=== PATIENT | male | born 1965 | race Caucasian/White ===

== ENCOUNTER 2024-02-25 15:32 | Inpatient (IN) | payer OTHER, SELFPAY ==
[2024-02-25] VITALS (12 sets, daily range): BP systolic 163–201; BP diastolic 103–136; PULSE 80–103; RESP 12–20; TEMP 36.6–37.1; O2SAT 95–100; BMI 36.3
--- NOTE | 2024-02-25 15:38 | HMH.EDGENADL ---
Discharge Plan Disposition Patient Disposition: Admitted Clinical Impressions Clinical Impression: Localized swelling of both lower extremities CHF (congestive heart failure) Qualifiers: Heart failure type: systolic Heart failure chronicity: unspecified Qualified Code(s): I50.20 - Unspecified systolic (congestive) heart failure Discharge ED Provider: Andres Andrade General Adult HPI General Chief complaint: Abdominal Pain Stated complaint: swollen feet and legs with runny nose Time Seen by Provider: 02/25/24 15:36 Mode of Arrival: Ambulatory Source of Information: Patient Limitations: No Limitations History of Present Illness HPI narrative: This is a 59-year-old male with no diagnosed past medical history who presents with concern for swelling in his lower extremities that has progressed to his abdomen over the last several months. States that he was talking to his friend who is a nurse who told him to come into the emergency department today due to concern about his health. States that the swelling started in his legs back in October and is now progressed to his abdomen. Denies any abdominal pain. Reports intermittent chills. States that he used to have moderate alcohol use drinking hard liquor and beers about 3 times weekly however he quit all hard liquors in June. Still drinks beer occasionally. Denies any drug use. Denies any other symptoms. Related Data Allergies Allergy/AdvReac Type Severity Reaction Status Date / Time No Known Allergies Allergy Verified 02/25/24 15:54 [facility] Disclaimer: The information contained in this section may have been updated after the patient was seen, as this information can be updated by other users. Social History Smoking Status: Current every day smoker alcohol intake: current current occupational status: employed Travel in the last 8 weeks: None ROS Obtained: Yes All systems reviewed & no additional complaints except as documented Physical Exam General General appearance: alert and in no apparent distress Eye Eye exam: Present normal appearance, PERRL, EOMI and scleral icterus Respiratory Respiratory exam: Present normal lung sounds bilaterally; Absent respiratory distress Cardiovascular Cardiovascular exam: Present regular rate and normal rhythm Abdominal Exam Abdominal exam: Present soft and distention (protuberant); Absent tenderness, guarding or rebound Extremities Exam Extremities exam: Present other (3+ pitting bilateral lower extremity edema) Neurological Exam Neurological exam: Present alert and oriented X3 Skin Skin exam: Present warm and dry Medical Decision Making Medical Records Medical records reviewed: Yes I reviewed the patient's medical records. Screening: Per USPSTF and CDC recommendations, given the prevalence of disease in our region, it is our hospital?s policy to screen for HIV and viral Hepatitis for all patients aged 18 and over and those with ongoing risk factors. Ian Inquiry Pt receiving controlled substance: No Vital Signs: 02/25/24 15:34 02/25/24 16:07 02/25/24 16:13 Temperature 98.5 F Temperature Source Oral Pulse Rate 103 H Pulse Rate [Right Radial] 101 H Respiratory Rate 20 19 Blood Pressure 179/118 H 201/119 H Blood Pressure [Right Arm] 201/136 H Blood Pressure Mean [Right Arm] 157 02 Sat by Pulse Oximetry 100 98 95 Oxygen Delivery Method Room Air Room Air Room Air 02/25/24 16:30 02/25/24 16:50 02/25/24 17:15 Temperature Temperature Source Pulse Rate 96 H 102 H 95 H Pulse Rate [Right Radial] Respiratory Rate 16 12 18 Blood Pressure 191/121 H 177/109 H 195/122 H Blood Pressure [Right Arm] Blood Pressure Mean [Right Arm] 02 Sat by Pulse Oximetry 99 97 97 Oxygen Delivery Method Room Air Room Air 02/25/24 17:30 Temperature Temperature Source Pulse Rate 95 H Pulse Rate [Right Radial] Respiratory Rate 15 Blood Pressure 189/118 H Blood Pressure [Right Arm] Blood Pressure Mean [Right Arm] 02 Sat by Pulse Oximetry 97 Oxygen Delivery Method Room Air Lab Data Lab Results 02/25/24 16:00: WBC 6.1, RBC 4.56 L, Hgb 12.9 L, Hct 40.4 L, MCV 88.6, MCH 28.3, MCHC 31.9, RDW 13.3, Plt Count 166, MPV 10.8 H, Neut % (Auto) 65.5, Lymph % (Auto) 22.9, [place] % (Auto) 9.2, Eos % (Auto) 1.5, Baso % (Auto) 0.7, Neut # (Auto) 4.0, Lymph # (Auto) 1.4, [place] # (Auto) 0.6, Eos # (Auto) 0.1, Baso # (Auto) 0.0, PT 12.0, INR 1.08, Sodium 138, Potassium 3.8, Chloride 102, Carbon Dioxide 32 H, Anion Gap 7.8, BUN 16, Creatinine 0.90, Estimated Creat Clear 160, Estimated GFR 87, Est GFR ( Amer) 105, Glucose 156 H, Calcium 8.5, Total Bilirubin 1.2, AST 44, ALT 17, Alkaline Phosphatase 68, NT-Pro-B Natriuret Pep 7520 H, Total Protein 6.8, Albumin 3.6, Globulin 3.2, Albumin/Globulin Ratio 1.1, Lipase 64, Plasma/Serum Alcohol < 10 02/25/24 16:00 02/25/24 16:00 Orders (Tests/Meds): ED MEDICATIONS Generic Name Dose Route Start Last Admin Trade Name Freq PRN Reason Stop Dose Admin Enoxaparin Sodium 40 mg 02/25/24 17:45 Enoxaparin 40mg/0.4ml Syringe SUBCUT 03/26/24 17:44 DAILY MIRIAM Furosemide 80 mg 02/26/24 09:00 Furosemide 40mg/4ml Vial IV 03/27/24 08:59 BIDL MIRIAM Insulin Human Lispro 0 unit 02/25/24 21:00 Humalog 100 Units/Ml 10ml Vial (Ssi) SUBCUT 03/26/24 20:59 ACHS MIRIAM Protocol Sacubitril/Valsartan 1 each 02/25/24 21:00 Sacubitril/Valsartan 24-26mg Tablet PO 03/26/24 20:59 BID MIRIAM Discontinued Medications Generic Name Dose Route Start Last Admin Trade Name Freq PRN Reason Stop Dose Admin Furosemide 40 mg 02/25/24 16:56 02/25/24 18:06 Furosemide 40mg/4ml Vial IV 02/25/24 16:57 40 mg ONCE ONE Administration Furosemide 80 mg 02/25/24 17:30 Furosemide 40mg/4ml Vial IV 02/25/24 17:31 ONCE ONE Iopamidol 75 ml 02/25/24 16:51 02/25/24 16:52 Iopamidol-370 (76%);100ml Bottle IV 02/25/24 16:52 75 ml ONCE ONE Administration Sodium Chloride 10 ml 02/25/24 16:51 02/25/24 16:52 Sodium Chloride 0.9% 10ml Syr (Rad Only) IV 02/25/24 16:52 10 ml ONCE ONE Administration ORDERS Category Date Time Status CT abdomen pelvis w con Stat Cat Scan 02/25/24 15:55 Completed Cardiology Consult [Consult to Cardiology] [CONS] Cons 02/25/24 17:29 Active Routine Chest XR 2 view (NOT portable) [XR chest 2V] Stat Exams 02/25/24 15:55 Completed POCUS Point of Care (ER Only) Stat Exams 02/25/24 17:09 Ordered BNP [NT Pro Brain Natriuretic Pep.] Stat Lab 02/25/24 16:00 Completed Blood alcohol [Ethyl Alcohol] Stat Lab 02/25/24 16:00 Completed CBC w/Auto Diff [Complete Blood Count Auto Diff] Stat Lab 02/25/24 16:00 Completed CMP [Comprehensive Metabolic Panel] Stat Lab 02/25/24 16:00 Completed Complete Blood Count Auto Diff AMLAB Lab 02/26/24 06:00 Ordered Comprehensive Metabolic Panel AMLAB Lab 02/26/24 06:00 Ordered Direct LDL Cholesterol DAILY Lab 02/26/24 06:00 Ordered Hemoglobin A1C Stat Lab 02/25/24 16:00 Received Hepatitis Panel Stat Lab 02/25/24 16:00 Received Lipase Stat Lab 02/25/24 16:00 Completed Magnesium AMLAB Lab 02/26/24 06:00 Ordered PT/INR [Prothrombin Time INR] Stat Lab 02/25/24 16:00 Completed TSH [Thyroid Stimulating Hormone] Stat Lab 02/25/24 16:00 Received Troponin I Q3H Lab 02/25/24 20:30 Ordered Troponin I Q3H Lab 02/25/24 23:30 Ordered Troponin I Stat Lab 02/25/24 16:00 Received CA echo doppler complete Routine Y 02/25/24 17:30 Ordered ECG Data Tracing #1: I reviewed this ECG and interpreted as documented below: Sinus tachycardia at a rate of 101, occasional PVC, QTc 407, normal axis, no STEMI Medical Decision Narrative: In summary, this 59-year-old male with no diagnosed past medical history presents to the emergency department today with concern for lower extremity swelling that has progressed to his abdomen over the last several months. On initial evaluation patient is in no acute distress, afebrile, hemodynamically stable. Had pitting bilateral lower extremity edema and protuberant abdomen with possible sclarea icterus on exam. Differential diagnosis includes but is not limited to cirrhosis, hepatitis, CHF, acute renal failure. Based on these concerns, I ordered CBC, CMP, lipase, PT/INR, chest x-ray, BNP, CT abdomen pelvis with IV contrast, hepatitis panel. ECG personally interpreted as noted above. Labs personally reviewed demonstrate normal white blood cell count, mild anemia at Hb 12.9, normal total bilirubin and LFTs, BNP 7520. XR personally interpreted demonstrates right lower lobe opacity which could represent pneumonia. CT imaging personally interpreted demonstrates mild ascites and associated right sided pleural effusion. [id number] ultrasound revealed moderately diminished LVEF. EPSS 16 mm. Administered 40 mg Lasix IV for volume overload. Had an interactive discussion with hospitalist on-call who agreed with admission. Recommended giving an increased dose of Lasix for a total of 120 mg IV. This order was placed by me. Patient ultimately admitted. Procedures Miscellaneous Procedure Procedure Performed: Cardiac US Limited Cardiac Ultrasound Indication: Swelling Identified cardiac views: Parasternal long axis Parasternal short axis Apical four-chamber Subxiphoid Findings: Moderately diminished LVEF Impression: -Moderately diminished LVEF Images were saved to permanent archive The study was technically adequate CPT: 28910 This study was performed by me, and I personally interpreted all images/videos. Based on my clinical judgement, these images were [adequate/inadequate] and [did/did not] necessitate further imaging. Critical Care Critical Care Time Critical Care Time: No
--- NOTE | 2024-02-25 15:51 | ECG_ITS ---
APPROVED REPORT Exam: Resting ECG HR:101 bpm ECG Measurements Heart Rate 101 AXES MD 173 P 66 QRSd 109 QRS 94 QT 349 T -13 QTc 407 Conclusion SINUS TACHYCARDIA WITH OCCASIONAL VENTRICULAR PREMATURE COMPLEXES BORDERLINE RIGHT AXIS DEVIATION [QRS AXIS > 90] ABNORMAL ECG UNCONFIRMED REPORT Electronically signed by : Andres Andrade, 02/25/2024 21:28:44
--- NOTE | 2024-02-25 15:55 | CT_ITS ---
PROCEDURE INFORMATION: Exam: CT Abdomen And Pelvis With Contrast Exam date and time: 02/25/2024 4:45 PM Age: 59 years old Clinical indication: Mass, lump, or swelling; Generalized; Additional info: Abd swelling TECHNIQUE: Imaging protocol: Computed tomography of the abdomen and pelvis with contrast. Radiation optimization: All CT scans at this facility use at least one of these dose optimization techniques: automated exposure control; mA and/or kV adjustment per patient size (includes targeted exams where dose is matched to clinical indication); or iterative reconstruction. Contrast material: ISOVUE; Contrast volume: 75 ml; Contrast route: IV; COMPARISON: CR XR CHEST 2V 02/25/2024 3:59 PM FINDINGS: Pleural spaces: Right pleural effusion partially visualized in the lower thorax. Subsegmental atelectasis/scarring also noted in the right lung base. Liver: Fatty liver. No focal liver lesions. Gallbladder and biliary ducts: Unremarkable. Pancreas: Unremarkable. Spleen: Unremarkable. Adrenal glands: Unremarkable. Kidneys and ureters: No renal or ureteral stones. No hydronephrosis. Stomach and bowel: No evidence of small bowel obstruction. Few scattered colonic diverticula without evidence of diverticulitis. Appendix: No evidence of appendicitis. Intraperitoneal space: Moderate amount of intraperitoneal fat with small volume scattered ascites. No pneumoperitoneum. Vasculature: No abdominal aortic aneurysm. Lymph nodes: Unremarkable. Urinary bladder: Unremarkable. Reproductive: Unremarkable. Bones/joints: Variant transitional lumbosacral anatomy. No evidence of acute osseous abnormality. Soft tissues: Anasarca. IMPRESSION: 1. No evidence of acute intra-abdominal pathology. 2. Moderate amount of intraperitoneal fat with small volume scattered ascites. 3. Anasarca. 4. Right pleural effusion partially visualized in the lower thorax. 5. Fatty liver. 6. Variant transitional lumbosacral anatomy. 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
--- NOTE | 2024-02-25 15:55 | XR_ITS ---
FINAL REPORT CLINICAL HISTORY: eval volume status FINDINGS: There is right basilar airspace disease compatible with pneumonia. The left lung is clear. There is no evidence of effusion or other pleural disease. The mediastinum has a normal appearance. There is moderate cardiomegaly. IMPRESSION: Right basilar pneumonia. Reviewed, Interpreted and Dictated by Bette Croft MD Transcribed by Edie Liu Authenticated and [facility]
[2024-02-25 16:28] LABS: Alanine Aminotransferase 17 U/L (12-78); Albumin Level 3.6 g/dl (3.5-5.0); Albumin/Globulin Ratio 1.1 (1.1-1.8); Alkaline Phosphatase 68 U/L (38-126); Anion Gap 7.8 mEq/L (5-15); Aspartate Amino Transferase 44 U/L (17-59); Bilirubin,Total 1.2 mg/dl (0.2-1.3); Blood Urea Nitrogen 16 mg/dl (9-20); Calcium 8.5 mg/dl (8.4-10.2); Carbon Dioxide 32 mmol/L (22.0-30.0); Chloride 102 mmol/L (98-107); Creatinine Clearance Estimated 160 mL/min (50-200); Estimated Glomerular Filt Rate 87 ml/min (>60); GFR (African American) 105 ML/MIN (>60); Globulin 3.2 g/dL (1.3-3.2); Glucose 156 mg/dl (74-100); INR 1.08 (0.9-1.1); Lipase 64 U/L (23-300); Potassium 3.8 mmoL/L (3.5-5.1); Sodium 138 mmol/L (136-145); Total Protein,Serum 6.8 g/dl (6.3-8.2)
[2024-02-25 16:36] LABS: NT Pro Brain Natriuretic Pep. 7520 pg/mL (0-125)
--- NOTE | 2024-02-25 16:42 | PC.NURSE ---
PT TO CT
[2024-02-25 16:48] LABS: Ethyl Alcohol < 10 mg/dl (0-10)
[2024-02-25 16:51] LABS: Hematocrit 40.4 % (42.0-52.0); Hemoglobin 12.9 g/dL (14.1-18.0); Lymphocytes % 22.9 % (10-50); Mean Corpuscular HGB Conc 31.9 g/dL (31.8-35.4); Mean Corpuscular Hemoglobin 28.3 pg (27.0-31.2); Mean Corpuscular Volume 88.6 fl (80-94); Mean Platelet Volume 10.8 fl (7.4-10.4); Monocytes % 9.2 % (1.7-9.3); Neutrophils % 65.5 % (37.0-80.0); Platelet Count 166 K/mm3 (142-424); Red Blood Count 4.56 M/mm3 (4.60-6.20); Red Cell Distribution Width 13.3 % (11.5-17.5); White Blood Count 6.1 K/mm3 (4.8-10.8)
[2024-02-25 16:52] LABS: Basophils % 0.7 % (0.1-2.0); Eosinophils # 0.1 K/mm3 (0.0-0.4); Eosinophils % 1.5 % (0.1-12.0); Lymphocytes # 1.4 K/mm3 (0.7-4.5); Monocytes # 0.6 K/mm3 (0.1-1.0)
[2024-02-25] MEDS: IOPAMIDOL-370 (76%);100ML BOTTLE 75 ML IV (16:52)
[2024-02-25] MEDS: SODIUM CHLORIDE 0.9% 10ML SYR (RAD ONLY) 10 ML IV (16:52)
--- NOTE | 2024-02-25 17:31 | P.HP_ITS ---
History of Present Illness *Admission Date: 02/25/24 *Reason for visit:: Dyspnea with exertion, swelling *History of present illness: Mr. Garibay is a 59-year-old male who has not been to the doctor almost 20 years. Presented to the ER at the recommendation of his friend who is a nurse due to increased swelling that is progressed over the past year from his ankles up to his abdomen. Has gained significant weight with fluid. Pants fitting tight. Distention of abdomen. Shortness of breath with exertion. States a pressure sensation in his abdomen and chest as his abdomen is gotten bigger. Started in his ankles and legs earlier this year. Progressed over the summer up to his thighs and since October his abdomen has become more distended and edematous. States that when he is seated and rests his arms on his legs, he has impressions in his thighs from his arms. Initial workup in the ER including bedside ultrasound to evaluate heart, CT abdomen, and labs. Patient found to have anasarca, ascites, right sided effusion on CT. BNP elevated at 7500. Kidney function and electrolytes remarkably normal. Patient stable on room air. Findings consistent with acute heart failure and volume overload. Administered 40 mg Lasix in the ER. Medicine consulted for admission. Patient given additional 80 mg Lasix on arrival to the floor. Stable on room air. Alert and oriented x 4. Denies linnea chest pain, does complain of discomfort that has been present for about a month that he correlated to his abdomen being more distended. No nausea, vomiting, diarrhea. Has been trying an [id number] diuretic that he got from [employer] that has given him no benefit. He had to lay flat to sleep but does have dyspnea with exertion and unable to bend over and tie his shoes. Reports that he had an episode over 20 years ago where his heart was abnormal and rhythm, he went through cardioversion and was on a blood thinner along with metoprolol. Does not know if he frankly had A-fib. States he has not had any issues since that he is aware of. Has had high blood pressure for a long time. Former drinker who quit hard liquor earlier this year. Former smoker who smoked a pack a day for approximately 40 years but is down to 1 cigarette a few times a week. [facility] Disclaimer: The information contained in this section may have been updated after the patient was seen, as this information can be updated by other users. Social History Smoking Status: Current every day smoker alcohol intake: current current occupational status: employed Travel in the last 8 weeks: None Have you lived/traveled outside [place] in past 30 days?: No Contact w/someone who lives/traveled outside US past 30 days?: No Exposure to someone with infectious disease in past 14 days?: No Do you have a fever (greater than 100.4 F or 38 C)?: No Have you tested positive for COVID-19: No Exposed to someone with COVID-19 in past 14 days?: No Do you have a sore throat?: No Do you have a cough?: No Do you have any weakness?: No Do you have any diarrhea?: No Are you experiencing any unusual bleeding?: No Do you have any muscle aches/pain?: No Do you have any abdominal pain?: No Are you experiencing loss of taste or smell?: No Review of Systems Review of Systems Review of systems (narrative): 14 point review of systems performed, pertinent positives and negatives as per HPI Meds Home Medications and Allergies Home Medications ?Medication ?Instructions ?Recorded ?Confirmed ?Type No Known Home Medications 02/25/24 02/25/24 History New Prescriptions to Start Prescriptions: Allergies Allergy/AdvReac Type Severity Reaction Status Date / Time No Known Allergies Allergy Verified 02/25/24 15:54 Exam Data for Last 24 hours Vital signs and Labs for Last 24 Hours: Temp Pulse Resp BP Pulse Ox O2 Del Method 98.5 F 102 H 12 177/109 H 97 Room Air 02/25/24 15:34 02/25/24 16:50 02/25/24 16:50 02/25/24 16:50 02/25/24 16:50 02/25/24 16:30 Laboratory Results - last 24 hr 02/25/24 16:00: WBC 6.1, RBC 4.56 L, Hgb 12.9 L, Hct 40.4 L, MCV 88.6, MCH 28.3, MCHC 31.9, RDW 13.3, Plt Count 166, MPV 10.8 H, Neut % (Auto) 65.5, Lymph % (Auto) 22.9, [place] % (Auto) 9.2, Eos % (Auto) 1.5, Baso % (Auto) 0.7, Neut # (Auto) 4.0, Lymph # (Auto) 1.4, [place] # (Auto) 0.6, Eos # (Auto) 0.1, Baso # (Auto) 0.0, PT 12.0, INR 1.08, Sodium 138, Potassium 3.8, Chloride 102, Carbon Dioxide 32 H, Anion Gap 7.8, BUN 16, Creatinine 0.90, Estimated Creat Clear 160, Estimated GFR 87, Est GFR ( Amer) 105, Glucose 156 H, Calcium 8.5, Total Bilirubin 1.2, AST 44, ALT 17, Alkaline Phosphatase 68, NT-Pro-B Natriuret Pep 7520 H, Total Protein 6.8, Albumin 3.6, Globulin 3.2, Albumin/Globulin Ratio 1.1 , Lipase 64, Plasma/Serum Alcohol < 10 I & O for Last 24 hours: Intake & Output 02/22/24 02/23/24 02/24/24 02/25/24 23:59 23:59 23:59 23:59 Weight 124.738 kg Constitutional Constitutional: no acute distress, obese and cooperative *Routine HEENT Exam Head: Present normocephalic Eye: Present EOMI and PERRL ENT: Present mucous membranes moist *Routine Neck Exam Neck: Present supple; Absent lymphadenopathy *Routine Respiratory Exam Respiratory: Present crackles and diminished air movement; Absent rhonchi or wheezes *Routine Cardiovascular Exam Cardiovascular: Present tachycardia Comments: Regular rhythm *Routine Abdominal Exam Abdominal: Present soft, normoactive bowel sounds and distended; Absent tenderness Comments: Edema of abdominal wall *Routine Rectal Exam Rectal:: deferred *Routine Genitalia Exam Genitalia:: deferred *Routine Extremities Exam Extremities: Present edema (3+ to thighs); Absent cyanosis or clubbing Comments: Anasarca *Routine Skin Exam Skin: Present warm; Absent rash *Routine Neurological Exam Neurological: Present alert, oriented X3 and moving all extremities; Absent altered mental status Routine Psychiatric Exam Psychiatric: Present normal affect Assessment and Plan *Assessment and plan (1) Acute CHF (congestive heart failure): Status: Acute Category: Medical Code(s): I50.9 - Heart failure, unspecified (2) NSTEMI (non-ST elevated myocardial infarction): Status: Acute Category: Medical Code(s): I21.4 - Non-ST elevation (NSTEMI) myocardial infarction (3) Hyperglycemia: Status: Acute Category: Medical Code(s): R73.9 - Hyperglycemia, unspecified (4) Pleural effusion: Status: Acute Category: Medical Code(s): J90 - Pleural effusion, not elsewhere classified (5) Hypertension: Status: Acute Category: Medical Code(s): I10 - Essential (primary) hypertension (6) Obesity (BMI 30-39.9): Status: Chronic Category: Medical Code(s): E66.9 - Obesity, unspecified Plan 59-year-old male who presents with progressive edema and swelling. Workup in the ER concerning for acute CHF. Found to have elevated troponin consistent with NSTEMI. Discussed case with ER, request admission for further management and aggressive diuresis. I agreed to admit for further treatment. Cardiology consulted to see patient in the morning. Will initiate Bumex drip. Stable on room air. Problems addressed as follows: Acute CHF NSTEMI Hypertension -BNP elevated at 7500, per my review of CT of abdomen patient has ascites, anasarca/body wall edema, and right-sided effusion. -Initial troponin 0.59, patient denies chest pain and EKG personally reviewed showing no ST elevations or ischemic changes. Noted to have sinus tachycardia. -Received 120 mg Lasix total around admission. Will initiate 0.5 mg/h Bumex drip. Plan for aggressive diuresis. -Formal echo ordered for the morning, POCUS obtained in the ER with LV dysfunction. -Blood pressure significantly elevated. Will initiate Entresto 24/26 mg twice daily. Initiate isosorbide dinitrate 10 mg 3 times a day. Will hold on beta- staci pending formal echo -Cardiology consulted to evaluate patient in the morning. -Kidney function electrolytes normal with BUN 16, creatinine 0.9. Potassium 3.8. Repeat CBC, CMP, magnesium ordered for the morning. -TSH normal at 4. Hyperglycemia: Initial glucose 156. A1c pending. Will initiate fingersticks ACHS and sliding scale insulin. Concern patient may have diabetes as well. Tobacco use disorder, smokes very little now. Will hold on nicotine patches Obesity complicates all aspects of his care Full code Lovenox 40 mg subcu daily Cardiac diet, n.p.o. at midnight
--- NOTE | 2024-02-25 17:47 | PC.NURSE ---
RESIDENTIAL [employer]STRUCTION INSTRUCTOR NOTIFIED OF ADMISSION
[2024-02-25] MEDS: FUROSEMIDE 40MG/4ML VIAL 40 MG IV (18:06)
[2024-02-25 18:10] LABS: Troponin I 0.59 ng/ml (0.00-0.034)
--- NOTE | 2024-02-25 18:11 | PC.NURSE ---
TROP 0.59, PT NAME AND R/V. DR VASQUEZ NOTIFIED
[2024-02-25 18:18] LABS: Thyroid Stimulating Hormone 4.17 uIU/mL (0.465-4.68)
--- NOTE | 2024-02-25 18:18 | PC.NURSE ---
arrived to floor by w/c at 18:14
[2024-02-25] MEDS: FUROSEMIDE 40MG/4ML VIAL 80 MG IV (18:31)
[2024-02-25] MEDS: ENOXAPARIN 40MG/0.4ML SYRINGE 40 MG SUBCUT (18:32)
--- NOTE | 2024-02-25 19:08 | PC.NURSE ---
Patient's BP 199/113, MD aware, new medications ordered.
[2024-02-25] MEDS: ASPIRIN 325MG TABLET 325 MG PO (20:06)
[2024-02-25] MEDS: BUMETANIDE 10 MG in 0.9 % SODIUM CHLORIDE 60 ML 5 MG IV (20:06)
[2024-02-25] MEDS: ENOXAPARIN 80MG/0.8ML SYRINGE 80 MG SUBCUT (20:07)
[2024-02-25 20:51] LABS: POC Glucose,Bedside 140 (70-110)
[2024-02-25] MEDS: guaiFENesin 200MG/10ML SYRUP UDC 200 MG PO (20:58)
[2024-02-25] MEDS: ISOSORBIDE DINITRATE 10 MG TABLET PO (20:58)
[2024-02-25] MEDS: SACUBITRIL/VALSARTAN 24-26MG TABLET 1 EACH PO (20:58)
[2024-02-25 21:03] LABS: Troponin I 0.49 ng/ml (0.00-0.034)
[2024-02-25 23:05] LABS: Hemoglobin A1C 6.5 % (4.0-6.0)
--- NOTE | 2024-02-25 23:58 | PC.NURSE ---
Contacted Dr. Phelps with concerns of pt elevated BP continuing, new PRN orders given at this time
[2024-02-26] VITALS (11 sets, daily range): BP systolic 121–156; BP diastolic 63–92; PULSE 80–100; RESP 17–19; TEMP 36.7–37.1; O2SAT 95–97; BMI 39.6
[2024-02-26] MEDS: HYDRALAZINE 20MG/ML VIAL 10 MG IV (00:04)
[2024-02-26 00:09] LABS: Troponin I 0.56 ng/ml (0.00-0.034)
--- NOTE | 2024-02-26 00:11 | P.EN_ITS ---
Patient currently being treated for CHF exacerbation and also appears to have non-STEMI with hypertensive urgency. Patient's troponin trend overnight 0.59-> 0.49-> 0.56. Patient already received Lovenox 120 mg x 1 this evening for non- STEMI coverage. Patient also received aspirin 324 mg x 1 this evening. Patient currently chest pain-free. Patient has suffered from some hypertension's overnight BP 173/101. I wrote for 10 mg IV hydralazine every 4 hours as needed. Suspect patient may receive cardiac catheterization in AM. Cardiology consultation already in progress. Will continue to monitor patient's troponin trends and blood pressure closely overnight.
[2024-02-26] MEDS: NIFEdipine XL 30MG TABLET 30 MG PO ×2 (00:24→08:27)
[2024-02-26] MEDS: guaiFENesin 200MG/10ML SYRUP UDC 200 MG PO (05:46)
[2024-02-26 06:23] LABS: HBsAg Screen Negative (Negative); HCV Ab Non Reactive (Non Reactive); Hep A Ab, IGM Negative (Negative); Hep B Core Ab, IgM Negative (Negative)
[2024-02-26 06:24] LABS: POC Glucose,Bedside 111 (70-110)
[2024-02-26 06:56] LABS: Albumin Level 3.4 g/dl (3.5-5.0); Chloride 104 mmol/L (98-107); Potassium 3.3 mmoL/L (3.5-5.1); Sodium 135 mmol/L (136-145)
[2024-02-26 06:59] LABS: Alanine Aminotransferase 15 U/L (12-78); Albumin/Globulin Ratio 1.1 (1.1-1.8); Alkaline Phosphatase 64 U/L (38-126); Anion Gap 5.3 mEq/L (5-15); Aspartate Amino Transferase 36 U/L (17-59); Bilirubin,Total 1.4 mg/dl (0.2-1.3); Blood Urea Nitrogen 14 mg/dl (9-20); Carbon Dioxide 29 mmol/L (22.0-30.0); Creatinine Clearance Estimated 202 mL/min (50-200); Estimated Glomerular Filt Rate 100 ml/min (>60); GFR (African American) 121 ML/MIN (>60); Globulin 3.2 g/dL (1.3-3.2); Total Protein,Serum 6.6 g/dl (6.3-8.2)
[2024-02-26 07:00] LABS: Calcium 8.6 mg/dl (8.4-10.2); Glucose 110 mg/dl (74-100); Hematocrit 38.3 % (42.0-52.0); Hemoglobin 12.3 g/dL (14.1-18.0); Magnesium 1.6 mg/dl (1.6-2.3); Red Blood Count 4.42 M/mm3 (4.60-6.20); White Blood Count 6.6 K/mm3 (4.8-10.8)
[2024-02-26 07:01] LABS: Basophils % 0.8 % (0.1-2.0); Eosinophils # 0.1 K/mm3 (0.0-0.4); Eosinophils % 2.1 % (0.1-12.0); Lymphocytes # 1.2 K/mm3 (0.7-4.5); Lymphocytes % 18.3 % (10-50); Mean Corpuscular HGB Conc 32.1 g/dL (31.8-35.4); Mean Corpuscular Hemoglobin 27.8 pg (27.0-31.2); Mean Corpuscular Volume 86.7 fl (80-94); Mean Platelet Volume 10.4 fl (7.4-10.4); Monocytes # 0.7 K/mm3 (0.1-1.0); Monocytes % 11.2 % (1.7-9.3); Neutrophils # 4.5 K/mm3 (1.8-7.8); Neutrophils % 67.4 % (37.0-80.0); Platelet Count 171 K/mm3 (142-424); Red Cell Distribution Width 13.2 % (11.5-17.5)
[2024-02-26 07:02] LABS: Basophils # 0.1 K/mm3 (0-0.2)
[2024-02-26 08:04] LABS: Direct LDL Cholesterol 100.18 mg/dL (100-129)
[2024-02-26] MEDS: SACUBITRIL/VALSARTAN 24-26MG TABLET 1 EACH PO ×2 (08:27→20:04)
[2024-02-26] MEDS: CLOPIDOGREL 75MG TAB 75 MG PO (08:27)
[2024-02-26] MEDS: ISOSORBIDE DINITRATE 10 MG TABLET PO ×3 (08:27→20:05)
[2024-02-26] MEDS: MAGNESIUM SULFATE IN WATER 2 GM/50 ML PIGGYBACK IV ×2 (08:34→09:39)
[2024-02-26] MEDS: POTASSIUM CHLORIDE 20MEQ TAB 40 MEQ PO ×2 (08:34→10:46)
[2024-02-26] MEDS: AZITHROMYCIN 250MG TABLET 500 MG PO (10:46)
[2024-02-26] MEDS: BUMETANIDE 10 MG in 0.9 % SODIUM CHLORIDE 60 ML 5 MG IV (10:48)
[2024-02-26] MEDS: SODIUM CHLORIDE 3% 15ML NEB 3 ML IH (11:00)
--- NOTE | 2024-02-26 11:35 | P.CONCA_ITS ---
History of Present Illness History of Present Illness Consult date: 02/26/24 Requesting physician: Kartik Shields Consult reason: congestive heart failure Chief complaint: LE Edema and SOA History of present illness: 59-year-old white male with history of arrhythmia and heart valve issue unspecified and severe Htn (200s+) all evaluated over 20 years ago and untreated since that time. Patient presented to the emergency room with 6 months of worsening lower extremity edema and abdominal swelling. On arrival he was found to have anasarca, proBNP 7500, right pleural effusion. Trop flat at 0.59 and 0.56. EKG is [address] 101 with occasional PVCs. Admitted, started on diuretics and has already diursed 7L overnight. Patient is a former smoker, 40 years. States he is to drink alcohol but not heavily. His mother had heart valve replacement, details unknown. [facility] Disclaimer: The information contained in this section may have been updated after the patient was seen, as this information can be updated by other users. Social History Smoking Status: Current every day smoker alcohol intake: current current occupational status: employed Travel in the last 8 weeks: None Have you lived/traveled outside [place] in past 30 days?: No Contact w/someone who lives/traveled outside US past 30 days?: No Exposure to someone with infectious disease in past 14 days?: No Do you have a fever (greater than 100.4 F or 38 C)?: No Have you tested positive for COVID-19: No Exposed to someone with COVID-19 in past 14 days?: No Do you have a sore throat?: No Do you have a cough?: No Do you have any weakness?: No Do you have any diarrhea?: No Are you experiencing any unusual bleeding?: No Do you have any muscle aches/pain?: No Do you have any abdominal pain?: No Are you experiencing loss of taste or smell?: No Review of Systems Constitutional Constitutional: Denies fatigue and Denies weakness Eyes Eyes: Denies loss of vision ENT Ears, Nose, Mouth, and Throat: Denies hearing loss and Denies vertigo *Cardiovascular Cardiovascular: Denies chest pain, Reports dyspnea, Reports leg edema and Denies syncope *Respiratory Respiratory: Denies cough and Reports dyspnea *Gastrointestinal Gastrointestinal: Denies change in stool character, Denies nausea and Denies vomiting Comments: abdominal swelling/distension *Genitourinary Genitourinary: Denies difficulty urinating *Musculoskeletal Musculoskeletal: Denies muscle weakness Integumentary/Breasts Skin/Breast: Denies changing lesions *Neurologic Neurologic: Denies loss of vision, Denies syncope, Denies vertigo and Denies weakness Endocrine Endocrine: Denies fatigue Exam Data for Last 24 hours Vital signs and Labs for Last 24 Hours: Temp Pulse Resp BP Pulse Ox O2 Del Method 98.5 F 80 19 144/73 H 95 Room Air 02/26/24 07:51 02/26/24 11:05 02/26/24 11:05 02/26/24 07:51 02/26/24 07:51 02/26/24 08:40 Laboratory Results - last 24 hr 02/25/24 16:00: WBC 6.1, RBC 4.56 L, Hgb 12.9 L, Hct 40.4 L, MCV 88.6, MCH 28.3, MCHC 31.9, RDW 13.3, Plt Count 166, MPV 10.8 H, Neut % (Auto) 65.5, Lymph % (Auto) 22.9, Mcmullen % (Auto) 9.2, Eos % (Auto) 1.5, Baso % (Auto) 0.7, Neut # (Auto) 4.0, Lymph # (Auto) 1.4, Mcmullen # (Auto) 0.6, Eos # (Auto) 0.1, Baso # (Auto) 0.0, PT 12.0, INR 1.08, Sodium 138, Potassium 3.8, Chloride 102, Carbon Dioxide 32 H, Anion Gap 7.8, BUN 16, Creatinine 0.90, Estimated Creat Clear 160, Estimated GFR 87, Est GFR ( Amer) 105, Glucose 156 H, Hemoglobin A1c 6.5 H, Calcium 8.5, Total Bilirubin 1.2, AST 44, ALT 17, Alkaline Phosphatase 68, Troponin I 0.59 H, NT-Pro-B Natriuret Pep 7520 H, Total Protein 6.8, Albumin 3.6, Globulin 3.2, Albumin/Globulin Ratio 1.1, Lipase 64, TSH 4.17, Plasma/Serum Alcohol < 10, Hepatitis A IgM Ab Negative, Hep Bs Antigen Negative, Hep B Core IgM Ab Negative, Hepatitis C Antibody Non reactive, HCV RNA PCR Test Info Comment 02/25/24 20:15: Troponin I 0.49 H 02/25/24 20:26: POC Glucose 140 H 02/25/24 23:30: Troponin I 0.56 H 02/26/24 06:09: WBC 6.6, RBC 4.42 L, Hgb 12.3 L, Hct 38.3 L, MCV 86.7, MCH 27.8, MCHC 32.1, RDW 13.2, Plt Count 171, MPV 10.4, Neut % (Auto) 67.4, Lymph % (Auto) 18.3, Mcmullen % (Auto) 11.2 H, Eos % (Auto) 2.1, Baso % (Auto) 0.8, Neut # (Auto) 4.5, Lymph # (Auto) 1.2, Mcmullen # (Auto) 0.7, Eos # (Auto) 0.1, Baso # (Auto) 0.1, Sodium 135 L, Potassium 3.3 L, Chloride 104, Carbon Dioxide 29, Anion Gap 5.3, BUN 14, Creatinine 0.80, Estimated Creat Clear 202, Estimated GFR 100, Est GFR ( Amer) 121, Glucose 110 H D, Calcium 8.6, Magnesium 1.6, Total Bilirubin 1.4 H, AST 36, ALT 15, Alkaline Phosphatase 64, Total Protein 6.6, Albumin 3.4 L , Globulin 3.2, Albumin/Globulin Ratio 1.1, LDL Cholesterol Direct 100.18 02/26/24 06:17: POC Glucose 111 H I & O for Last 24 hours: Intake & Output 02/23/24 02/24/24 02/25/24 02/26/24 23:59 23:59 23:59 23:59 Intake Total 173.5 / 173.5 Output Total 3400 / 3900 4165 / 4165 Balance -3400 / -3900 -3991.5 / -3991.5 Weight 275 lb 309 lb 4 oz Constitutional Constitutional: no acute distress and cooperative *Routine HEENT Exam Eye: Present PERRL *Routine Respiratory Exam Respiratory: Present CTA bilaterally; Absent accessory muscle use, wheezes or crackles *Routine Cardiovascular Exam Cardiovascular: Present RRR, Normal S1 and Normal S2; Absent murmur, gallop or rubs Comments: pitting edema from feet to flanks *Routine Abdominal Exam Abdominal: Present soft; Absent tenderness *Routine Extremities Exam Extremities: Present pulses intact; Absent cyanosis or edema Comments: severe 4+ BLE Edema with chronic appearing skin changes *Routine Skin Exam Skin: Present intact; Absent erythema or wounds *Routine Neurological Exam Neurological: Present alert and oriented X3 Routine Psychiatric Exam Psychiatric: Present cooperative Meds Home Medications and Allergies Home Medications ?Medication ?Instructions ?Recorded ?Confirmed ?Type No Known Home Medications 02/25/24 02/25/24 History New Prescriptions to Start Prescriptions: Allergies Allergy/AdvReac Type Severity Reaction Status Date / Time No Known Allergies Allergy Verified 02/25/24 15:54 Assessment and Plan *Assessment and plan (1) NSTEMI (non-ST elevated myocardial infarction): Status: Acute Category: Medical Code(s): I21.4 - Non-ST elevation (NSTEMI) myocardial infarction (2) CHF (congestive heart failure): Status: Acute Qualifiers: Heart failure chronicity: unspecified Heart failure type: systolic Qualified Code(s): I50.20 - Unspecified systolic (congestive) heart failure Category: Medical Code(s): I50.9 - Heart failure, unspecified (3) Anasarca: Status: Acute Category: Medical Code(s): R60.1 - Generalized edema (4) Hypertensive urgency: Status: Acute Category: Medical Code(s): I16.0 - Hypertensive urgency Plan HFpEF - [place], ProBNP 7k, anasarca, untreated Htn, usnpecified heart valve dz - continue diuresis and Entresto - add Farxiga and Aldactone - check 2D ECHO Elevated Troponin - Elevated Troponin (0.59, 0.56) in setting of clinical heart failure. This may be chronic elevation from untreated Htn/HF - Pt denies anginal CP and EKG shows SR without ischemic changes - check 2D ECHO - likely LHC prior to DC - cont DAPT, Lovenox, add BB and statin Htn Urgency - uncontrolled BP up to 200s for 20 years - suspect associated HF - cont Entresto, add Coreg, Change Nifedipine to Aldactone due to LE Edema and HF Leaky Heart Valve - per pt report - no murmur on exam - mother had valve replacement - check 2D ECHO Obesity, BMI 39 - recommend aggressive weight loss via diet/exercise Former Tob - 40 pack year history DM-II - new dx this admission with A1C 6.5, add Farxiga BLE Edema - HF +/- CVI - recommend PT eval with wound care 02/25 summary: continue diuresis, add GDMT for suspected CAD/HF. Further plans pending ECHO. Probably LHC prior to DC. Addendum: ECHO: Conclusion Low normal LV systolic function (LVEF 50%). Moderate RV dilation with mild to moderate reduction in RV function. Biatrial dilation. Mild MR. Continue current plan of care, diurese to dry weight, add GDMT.
[2024-02-26] MEDS: CEFTRIAXONE 1 GM 1 GM in 0.9 % SODIUM CHLORIDE 50 ML IV (11:41)
[2024-02-26] MEDS: CARVEDILOL 3.125MG TABLET 3.125 MG PO ×2 (12:15→20:05)
[2024-02-26] MEDS: DAPAGLIFLOZIN PROPANEDIOL 10 MG TABLET PO (12:15)
[2024-02-26] MEDS: ASPIRIN EC 81MG TABLET 81 MG PO (12:15)
[2024-02-26] MEDS: SPIRONOLACTONE 25MG TABLET 25 MG PO (12:16)
--- NOTE | 2024-02-26 15:07 | PC.NURSE ---
Aox 4, up ad osbaldo, cardiac diet with 1500 fluid restriction, 20g r ac with bumex gtt at 5 ml/hr, using a urinal, 90's on ra, consults to cardiology.
--- NOTE | 2024-02-26 17:30 | CA_ITS ---
APPROVED REPORT EXAM: Comprehensive 2D, Doppler, and color-flow Echocardiogram Manager Hi: Lorraine Calderon CRT Ht: 6 ft 1 in Wt: 309lbs BSA: 2.59 BP: 189/118 mmHg Indications: Congestive Heart Failure, NSTEMI, Diabetes, Obesity, Peripheral Edema, Hypertension/HDD, hx alcohol use, smoker, ascities, anasarca, pleural effusion, cardioversion 20 yrs ago 2D Dimensions Left Atrium 5.07 cm LVEF (Rodriguez's) 38.40 % LVOT 2.12 cm (M/F) 1.5-2.5 LV Volume 197.30 mL EF AP4 39.90 % EF AP2 33.7 % EF BP 38.4 % GL Strain -12.4 % M-Mode Dimensions RVDd 3.16 cm (0.9-2.6) LVDd 5.73 cm (3.5-5.7) Ao Diam 3.41 cm (2.0-3.7) LVDs 4.47 cm (3.5-5.7) IVSd 2.03 cm (0.6-1.1) PWd 1.03 cm (0.6-1.1) EF (Teich) 43.80% FS 22.00% EDV (Teich) 162.00 mL ESV (Teich) 91.00 mL LV Diastology E Decel Time 140 (160-240 msec) E/A Ratio 1.80 MED E' 7.5 (>= 7 cm/sec) MED A' 5.20 cm/s E'/MED E' Ratio 12.16 (<= 14) LAT E' 10.0 (>= 10 cm/sec) LAT A' 8.70 cm/s E/LAT E' Ratio 9.12 (<= 14) Aortic Valve LVOT Max 145.0 (70-110 cm/s) MADHURI Index 1.20 cm2/m2 LVOT VTI 27.92 cm AoV Peak Froylan. 178.0 (50-130 cm/s) AO Peak GR. 13.00 mmHg AO Mean GR. 7.50 (<5 mmHg) AO VTI 31.6 (18-25 cm) MADHURI (VTI) 3.12 (2.5-4.5 cm2) Mitral Valve MV E Max Froylan. 91.0 (40-130 cm/s) MV A Velocity 51.0 (40-130 cm/s) E/A Ratio 1.80 MV Decel. Time 140 (160-240 ms) Tricuspid Valve TR P. Velocity 259.00 cm/s RAP Estimate 10.00 mmHg RVSP 36.90 mmHg Left Ventricle The left ventricle is normal size. The left ventricular systolic function is low normal. There is increased LV wall thickness. There is normal LV segmental wall motion. The left ventricular diastolic function is normal. LVEF is 50%. Right Ventricle The right ventricle is moderate dilated. Right ventricle is mildly to moderately hypokinetic. Atria The left atrium is mildly dilated. Right atrium is mildly dilated. There is no Doppler evidence of interatrial shunt. Aortic Valve The aortic valve is mildly thickened. There is no aortic valvular stenosis. Trace aortic regurgitation. Mitral Valve The mitral valve leaflets are mildly thickened. No evidence of mitral valve stenosis. Mild mitral regurgitation. Tricuspid Valve Tricuspid valve is grossly normal in structure and function. Trace tricuspid regurgitation. There is insufficient TR jet to estimate RVSP. Pulmonic Valve The pulmonary valve is normal in structure. Trace pulmonic regurgitation. Great Vessels The aortic root is normal in size. IVC is normal in size and collapses >50% with inspiration. Pericardium There is no pericardial effusion. Other Information Study Quality: Fair Conclusion Low normal LV systolic function (LVEF 50%). Moderate RV dilation with mild to moderate reduction in RV function. Biatrial dilation. Mild MR. Electronically signed by : Aida Thorpe MD 02/26/2024 12:08:29
--- NOTE | 2024-02-26 17:33 | P.PN_ITS ---
Subjective *Date: 02/26/24 *Time: 17:33 Interval history: Patient states he feels a lot better today, states his breathing has improved significantly. Also states his abdominal distention has improved a lot. Denies chest pain, shortness of breath. Exam Data for Last 24 hours Vital signs and Labs for Last 24 Hours: Temp Pulse Resp BP Pulse Ox O2 Del Method 98.4 F 89 18 121/71 95 Room Air 02/26/24 16:00 02/26/24 16:00 02/26/24 16:00 02/26/24 16:00 02/26/24 16:00 02/26/24 17:23 Laboratory Results - last 24 hr 02/25/24 16:00: Hemoglobin A1c 6.5 H, Troponin I 0.59 H, TSH 4.17, Hepatitis A IgM Ab Negative, Hep Bs Antigen Negative, Hep B Core IgM Ab Negative, Hepatitis C Antibody Non reactive, HCV RNA PCR Test Info Comment 02/25/24 20:15: Troponin I 0.49 H 02/25/24 20:26: POC Glucose 140 H 02/25/24 23:30: Troponin I 0.56 H 02/26/24 06:09: WBC 6.6, RBC 4.42 L, Hgb 12.3 L, Hct 38.3 L, MCV 86.7, MCH 27.8, MCHC 32.1, RDW 13.2, Plt Count 171, MPV 10.4, Neut % (Auto) 67.4, Lymph % (Auto) 18.3, Sanders % (Auto) 11.2 H, Eos % (Auto) 2.1, Baso % (Auto) 0.8, Neut # (Auto) 4.5, Lymph # (Auto) 1.2, Sanders # (Auto) 0.7, Eos # (Auto) 0.1, Baso # (Auto) 0.1, Sodium 135 L, Potassium 3.3 L, Chloride 104, Carbon Dioxide 29, Anion Gap 5.3, BUN 14, Creatinine 0.80, Estimated Creat Clear 202, Estimated GFR 100, Est GFR ( Amer) 121, Glucose 110 H D, Calcium 8.6, Magnesium 1.6, Total Bilirubin 1.4 H, AST 36, ALT 15, Alkaline Phosphatase 64, Total Protein 6.6, Albumin 3.4 L , Globulin 3.2, Albumin/Globulin Ratio 1.1, LDL Cholesterol Direct 100.18 02/26/24 06:17: POC Glucose 111 H I & O for Last 24 hours: Intake & Output 02/23/24 02/24/24 02/25/24 02/26/24 23:59 23:59 23:59 23:59 Intake Total 733.5 / 733.5 Output Total 3400 / 3900 5890 / 5890 Balance -3400 / -3900 -5156.5 / -5156.5 Weight 124.738 kg 140.273 kg Microbiology Reports for the Last 24 Hours: Microbiology 02/26/24 11:43 Sputum - Expectorated Sputum Gram Stain - Final Constitutional Constitutional: no acute distress *Routine HEENT Exam Head: Present normocephalic Eye: Present EOMI and PERRL ENT: Present mucous membranes moist *Routine Neck Exam Neck: Present supple; Absent lymphadenopathy *Routine Respiratory Exam Respiratory: Present CTA bilaterally *Routine Cardiovascular Exam Cardiovascular: Present RRR *Routine Abdominal Exam Abdominal: Present soft and normoactive bowel sounds; Absent tenderness *Routine Extremities Exam Extremities: Present edema; Absent cyanosis or clubbing Comments: 2+ lower extremity pitting edema. *Routine Skin Exam Skin: Present warm; Absent rash *Routine Neurological Exam Neurological: Present alert and oriented X3 Assessment and Plan *Assessment and plan (1) Acute CHF (congestive heart failure): Status: Acute Category: Medical Code(s): I50.9 - Heart failure, unspecified (2) NSTEMI (non-ST elevated myocardial infarction): Status: Acute Category: Medical Code(s): I21.4 - Non-ST elevation (NSTEMI) myocardial infarction (3) Hyperglycemia: Status: Acute Category: Medical Code(s): R73.9 - Hyperglycemia, unspecified (4) Pleural effusion: Status: Acute Category: Medical Code(s): J90 - Pleural effusion, not elsewhere classified (5) Hypertension: Status: Acute Category: Medical Code(s): I10 - Essential (primary) hypertension (6) Obesity (BMI 30-39.9): Status: Chronic Category: Medical Code(s): E66.9 - Obesity, unspecified Plan 59-year-old male who presents with progressive edema and swelling. Workup in the ER concerning for acute CHF. Found to have elevated troponin consistent with NSTEMI. Discussed case with ER, request admission for further management and aggressive diuresis. I agreed to admit for further treatment. Cardiology consulted to see patient in the morning. Will initiate Bumex drip. Stable on room air. Problems addressed as follows: #HFpEF exacerbation #Anasarca #NSTEMI #Hypertension - BNP elevated at 7500, per my review of CT of abdomen patient has ascites, anasarca/body wall edema, and right-sided effusion. - Initial troponin 0.59, patient denies chest pain and EKG personally reviewed showing no ST elevations or ischemic changes. Noted to have sinus tachycardia. TSH normal. ? ECHO shows LVEF 50%, moderate RV dilation with mild to moderate reduction in RV function. - Continue Bumex drip, has had -8.5 L net output so far. Patient feels a lot better today. ? Cardiology consulted, plan for LHC prior to discharge given NSTEMI. ? Continue aspirin, Plavix, Coreg 3.125 twice daily, Jardiance 10 mg, Entresto, spironolactone 25 mg. ? Continue IV Bumex drip for volume optimization. #Type 2 diabetes ? Hemoglobin A1c 6.5% on admission. ? Continue LDSSI, ACHS glucose checks. ? Started Jardiance as above. Tobacco use disorder, smokes very little now. Will hold on nicotine patches Obesity complicates all aspects of his care Full code Lovenox 40 mg subcu daily
[2024-02-26] MEDS: ATORVASTATIN 40MG TABLET 80 MG PO (20:05)
[2024-02-27] VITALS: BP 135/79; PULSE 80; PULSE 87; RESP 18; TEMP 36.4; O2SAT 98
--- NOTE | 2024-02-27 03:45 | PC.NURSE ---
Contacted Dr. Phelps regarding pt Bumex drip. current bag is almost empty and confirming pause or continue. Dr. Phelps informed me that it was ok to pause bumex drip at this time.
[2024-02-27 04:00] VITALS: BP 127/75; PULSE 80; RESP 16; TEMP 37.1; O2SAT 95; BMI 39.4
[2024-02-27 07:26] LABS: Chloride 102 mmol/L (98-107)
[2024-02-27 07:27] LABS: Potassium 3.7 mmoL/L (3.5-5.1)
[2024-02-27 07:29] LABS: Alanine Aminotransferase 13 U/L (12-78); Albumin/Globulin Ratio 1.1 (1.1-1.8); Alkaline Phosphatase 55 U/L (38-126); Aspartate Amino Transferase 31 U/L (17-59); Bilirubin,Total 1.3 mg/dl (0.2-1.3); Blood Urea Nitrogen 17 mg/dl (9-20); Calcium 8.2 mg/dl (8.4-10.2); Carbon Dioxide 32 mmol/L (22.0-30.0); Creatinine Clearance Estimated 161 mL/min (50-200); Estimated Glomerular Filt Rate 77 ml/min (>60); GFR (African American) 93 ML/MIN (>60); Globulin 2.7 g/dL (1.3-3.2); Glucose 128 mg/dl (74-100); Total Protein,Serum 5.7 g/dl (6.3-8.2)
[2024-02-27 07:30] LABS: Magnesium 1.7 mg/dl (1.6-2.3)
[2024-02-27 08:00] VITALS: BP 113/70; PULSE 80; PULSE 82; RESP 18; TEMP 37.2; O2SAT 93
[2024-02-27 08:07] LABS: Basophils % 0.9 % (0.1-2.0); Eosinophils # 0.1 K/mm3 (0.0-0.4); Hematocrit 34.2 % (42.0-52.0); Hemoglobin 10.9 g/dL (14.1-18.0); Lymphocytes # 1.2 K/mm3 (0.7-4.5); Lymphocytes % 20.9 % (10-50); Mean Corpuscular HGB Conc 31.9 g/dL (31.8-35.4); Mean Corpuscular Hemoglobin 27.6 pg (27.0-31.2); Mean Corpuscular Volume 86.6 fl (80-94); Mean Platelet Volume 10.6 fl (7.4-10.4); Monocytes # 0.8 K/mm3 (0.1-1.0); Monocytes % 13.8 % (1.7-9.3); Neutrophils # 3.5 K/mm3 (1.8-7.8); Neutrophils % 62.2 % (37.0-80.0); Platelet Count 162 K/mm3 (142-424); Red Blood Count 3.95 M/mm3 (4.60-6.20); Red Cell Distribution Width 13.2 % (11.5-17.5); White Blood Count 5.6 K/mm3 (4.8-10.8)
[2024-02-27 08:08] LABS: Basophils # 0.1 K/mm3 (0-0.2)
[2024-02-27 08:12] LABS: Anion Gap 3.7 mEq/L (5-15); Sodium 134 mmol/L (136-145)
[2024-02-27] MEDS: CEFTRIAXONE 1 GM 1 GM in 0.9 % SODIUM CHLORIDE 50 ML IV (09:24)
[2024-02-27] MEDS: SPIRONOLACTONE 25MG TABLET 25 MG PO (09:27)
[2024-02-27] MEDS: DAPAGLIFLOZIN PROPANEDIOL 10 MG TABLET PO (09:27)
[2024-02-27] MEDS: AZITHROMYCIN 250MG TABLET 250 MG PO (09:27)
[2024-02-27] MEDS: ASPIRIN EC 81MG TABLET 81 MG PO (09:27)
[2024-02-27] MEDS: SACUBITRIL/VALSARTAN 24-26MG TABLET 1 EACH PO (09:27)
[2024-02-27] MEDS: CLOPIDOGREL 75MG TAB 75 MG PO (09:27)
[2024-02-27] MEDS: ISOSORBIDE DINITRATE 10 MG TABLET PO ×2 (09:27→14:47)
[2024-02-27] MEDS: CARVEDILOL 3.125MG TABLET 3.125 MG PO (09:28)
[2024-02-27] MEDS: ENOXAPARIN 40MG/0.4ML SYRINGE 40 MG SUBCUT (09:28)
[2024-02-27] MEDS: guaiFENesin 200MG/10ML SYRUP UDC 200 MG PO (09:45)
--- NOTE | 2024-02-27 09:59 | EXP.CARD.PN ---
Subjective Subjective Date: 02/27/24 Time: 08:00 Interval history: Patient diuresing well, he is down 12 L. Still has pitting edema thigh-high bilaterally and patient would like to continue diuresing. Exam Data for Last 24 hours Vital signs and Labs for Last 24 Hours: Temp Pulse Resp BP Pulse Ox O2 Del Method 98.9 F 82 18 113/70 93 L Room Air 02/27/24 08:00 02/27/24 08:00 02/27/24 08:00 02/27/24 08:00 02/27/24 08:00 02/27/24 08:00 Laboratory Results - last 24 hr 02/27/24 06:13: WBC 5.6, RBC 3.95 L, Hgb 10.9 L, Hct 34.2 L, MCV 86.6, MCH 27.6, MCHC 31.9, RDW 13.2, Plt Count 162, MPV 10.6 H, Neut % (Auto) 62.2, Lymph % (Auto) 20.9, Zavala % (Auto) 13.8 H, Eos % (Auto) 2.0, Baso % (Auto) 0.9, Neut # (Auto) 3.5, Lymph # (Auto) 1.2, Zavala # (Auto) 0.8, Eos # (Auto) 0.1, Baso # (Auto) 0.1, Sodium 134 L, Potassium 3.7, Chloride 102, Carbon Dioxide 32 H, Anion Gap 3.7 L, BUN 17, Creatinine 1.00 D, Estimated Creat Clear 161, Estimated GFR 77, Est GFR ( Amer) 93 D, Glucose 128 H, Calcium 8.2 L, Magnesium 1.7, Total Bilirubin 1.3, AST 31, ALT 13, Alkaline Phosphatase 55, Total Protein 5.7 L, Albumin 3.0 L D, Globulin 2.7, Albumin/Globulin Ratio 1.1 I & O for Last 24 hours: Intake & Output 02/24/24 02/25/24 02/26/24 02/27/24 23:59 23:59 23:59 23:59 Intake Total 853.5 / 1238.5 2305 / 2305 Output Total 3400 / 3900 6915 / 8665 4970 / 4970 Balance -3400 / -3900 -6061.5 / -7426.5 -2665 / -2665 Weight 275 lb 309 lb 4 oz 307 lb 5.19 oz Microbiology Reports for the Last 24 Hours: Microbiology 02/26/24 11:43 Sputum - Expectorated Sputum Gram Stain - Final Constitutional Constitutional: no acute distress and cooperative *Routine HEENT Exam Eye: Present PERRL *Routine Respiratory Exam Respiratory: Present CTA bilaterally; Absent accessory muscle use, wheezes or crackles *Routine Cardiovascular Exam Cardiovascular: Present RRR, Normal S1 and Normal S2; Absent murmur, gallop or rubs Comments: Pitting edema from feet to flanks bilaterally, slightly improved since presentation *Routine Abdominal Exam Abdominal: Present soft; Absent tenderness *Routine Extremities Exam Extremities: Present pulses intact; Absent cyanosis or edema Comments: Chronic bilateral lower extremity skin changes and breakdown from chronic swelling *Routine Skin Exam Skin: Present intact; Absent erythema or wounds *Routine Neurological Exam Neurological: Present alert and oriented X3 Routine Psychiatric Exam Psychiatric: Present cooperative Progress Note: A&P Assessment and plan (1) Acute CHF (congestive heart failure): Status: Acute (2) Hyperglycemia: Status: Acute (3) Pleural effusion: Status: Acute (4) Hypertension: Status: Acute (5) Obesity (BMI 30-39.9): Status: Chronic (6) Cor pulmonale: Status: Acute Assessment and Plan Assessment and Plan for All Diagnoses:: Acute on Chronic Cor Pulmonale, RHF - new dx this admission with severe anasarca in setting of uncontrolled Hnt, presumed underlying COPD and moder RV dilation and dysfunctin - continue diuresis and BP control - needs pulm w/u - check CT chest and PFT and sleep study Elevated Troponin - mild flat elevation in setting of hypoxia and vol overload - denies anginal cp - no ischemia on EKG and and no WMA on ECHO - pt declines LHC this admission and would rather have OP stress test which is reasonable Htn Urgency - uncontrolled BP up to 200s for 20 years - cont Entresto, add Coreg, Change Nifedipine to Aldactone due to LE Edema and HF BLE Skin Changes - pt has erythema, flaking, and poor hygiene to BLE due to edema - will ask PT to eval for wound care IP and can refer to Podiatry OP Obesity, BMI 39 - recommend aggressive weight loss via diet/exercise Former Tob - 40 pack year history DM-II - new dx this admission with A1C 6.5, add Fartraciega *Continue diuresis until pt and dry weight then DC with current BP meds. He needs OP f/u with us in 1-2 weeks to continue his workup.
--- NOTE | 2024-02-27 10:05 | CT_ITS ---
FINAL REPORT TECHNIQUE: Axial CT without IV contrast administration. Coronal and sagittal reconstructions obtained and reviewed. This study was performed with techniques to keep radiation doses as low as reasonably achievable, (ALARA). Individualized dose reduction techniques using automated exposure control or adjustment of mA and/or kV according to the patient''s size were employed. CLINICAL HISTORY: cor pulmonale COMPARISON: None FINDINGS: There is a moderate right lower lobe atelectasis. The left lung is clear. There is a moderate size right pleural effusion. No pericardial left-sided effusion is seen. There is severe coronary artery calcified plaque disease. Mild cardiomegaly is noted. Limited images of the upper abdomen demonstrate a tiny amount of perihepatic ascites. IMPRESSION: Moderate right pleural effusion with right lower lobe atelectasis. Minimal ascites. Severe coronary artery disease. Reviewed, Interpreted and Dictated by Bette Croft MD Transcribed by Laura Padgett Authenticated and . [facility]
[2024-02-27 12:00] VITALS: BP 128/70; PULSE 70; RESP 18; TEMP 37; O2SAT 94
[2024-02-27] MEDS: BUMETANIDE 10 MG in 0.9 % SODIUM CHLORIDE 60 ML 5 MG IV (12:14)
[2024-02-27 16:00] VITALS: BP 136/83; PULSE 80; PULSE 81; RESP 18; TEMP 37.1; O2SAT 94
--- NOTE | 2024-02-27 16:04 | EXP.DC.SUM ---
General Admission date:: 02/25/24 HPI HPI HPI: Mr. Garibay is a 59-year-old male who has not been to the doctor almost 20 years. Presented to the ER at the recommendation of his friend who is a nurse due to increased swelling that is progressed over the past year from his ankles up to his abdomen. Has gained significant weight with fluid. Pants fitting tight. Distention of abdomen. Shortness of breath with exertion. States a pressure sensation in his abdomen and chest as his abdomen is gotten bigger. Started in his ankles and legs earlier this year. Progressed over the summer up to his thighs and since October his abdomen has become more distended and edematous. States that when he is seated and rests his arms on his legs, he has impressions in his thighs from his arms. Initial workup in the ER including bedside ultrasound to evaluate heart, CT abdomen, and labs. Patient found to have anasarca, ascites, right sided effusion on CT. BNP elevated at 7500. Kidney function and electrolytes remarkably normal. Patient stable on room air. Findings consistent with acute heart failure and volume overload. Administered 40 mg Lasix in the ER. Medicine consulted for admission. Patient given additional 80 mg Lasix on arrival to the floor. Stable on room air. Alert and oriented x 4. Denies linnea chest pain, does complain of discomfort that has been present for about a month that he correlated to his abdomen being more distended. No nausea, vomiting, diarrhea. Has been trying an [id number] diuretic that he got from [employer] that has given him no benefit. He had to lay flat to sleep but does have dyspnea with exertion and unable to bend over and tie his shoes. Reports that he had an episode over 20 years ago where his heart was abnormal and rhythm, he went through cardioversion and was on a blood thinner along with metoprolol. Does not know if he frankly had A-fib. States he has not had any issues since that he is aware of. Has had high blood pressure for a long time. Former drinker who quit hard liquor earlier this year. Former smoker who smoked a pack a day for approximately 40 years but is down to 1 cigarette a few times a week. Hospital Course Hospital Course Hospital Course: Reinaldo Garibay is a 59-year-old male who presents with progressive edema and swelling. Workup in the ER concerning for acute CHF. Found to have elevated troponin consistent with NSTEMI. #Acute HFpEF exacerbation #Right heart failure, cor pulmonale #Right pleural effusion #Anasarca #NSTEMI #Hypertension - BNP elevated at 7500, per my review of CT of abdomen patient has ascites, anasarca/body wall edema, and right-sided effusion. - Initial troponin 0.59, patient denies chest pain and EKG personally reviewed showing no ST elevations or ischemic changes. Noted to have sinus tachycardia. TSH normal. ? ECHO shows LVEF 50%, moderate RV dilation with mild to moderate reduction in RV function. CT chest revealed severe coronary disease. - Cardiology consulted and assisted with care. - Clinically improved with Bumex drip, net -14L output during admission. Patient feels significantly better. ? Cardiology will plan for outpatient ischemic evaluation. ? Discharged with Bumex 2mg BID for 7 days then 1mg BID, aspirin, Plavix, Coreg 3.125 twice daily, Jardiance 10 mg, Entresto, spironolactone 25 mg, isordil 10mg TID. ? Will follow-up with cardiology within 1-2 weeks. #Suspected community-acquired pneumonia - CXR reveals right lower lobe pneumonia. - Discharged with cefdinir and azithromycin for 3 more days. #Type 2 diabetes ? Hemoglobin A1c 6.5% on admission. ? Continue LDSSI, ACHS glucose checks. ? Started Jardiance as above. Tobacco use disorder, smokes very little now. Obesity complicates all aspects of his care Exam Data for Last 24 hours Vital signs and Labs for Last 24 Hours: Temp Pulse Resp BP Pulse Ox O2 Del Method 98.6 F 70 18 128/70 94 L Room Air 02/27/24 12:00 02/27/24 12:00 02/27/24 12:00 02/27/24 12:00 02/27/24 12:00 02/27/24 15:00 Laboratory Results - last 24 hr 02/27/24 06:13: WBC 5.6, RBC 3.95 L, Hgb 10.9 L, Hct 34.2 L, MCV 86.6, MCH 27.6, MCHC 31.9, RDW 13.2, Plt Count 162, MPV 10.6 H, Neut % (Auto) 62.2, Lymph % (Auto) 20.9, Towns % (Auto) 13.8 H, Eos % (Auto) 2.0, Baso % (Auto) 0.9, Neut # (Auto) 3.5, Lymph # (Auto) 1.2, Towns # (Auto) 0.8, Eos # (Auto) 0.1, Baso # (Auto) 0.1, Sodium 134 L, Potassium 3.7, Chloride 102, Carbon Dioxide 32 H, Anion Gap 3.7 L, BUN 17, Creatinine 1.00 D, Estimated Creat Clear 161, Estimated GFR 77, Est GFR ( Amer) 93 D, Glucose 128 H, Calcium 8.2 L, Magnesium 1.7, Total Bilirubin 1.3, AST 31, ALT 13, Alkaline Phosphatase 55, Total Protein 5.7 L, Albumin 3.0 L D, Globulin 2.7, Albumin/Globulin Ratio 1.1 I & O for Last 24 hours: Intake & Output 02/24/24 02/25/24 02/26/24 02/27/24 23:59 23:59 23:59 23:59 Intake Total 853.5 / 1238.5 2995 / 2995 Output Total 3400 / 3900 6915 / 8665 7770 / 7770 Balance -3400 / -3900 -6061.5 / -7426.5 -4775 / -4775 Weight 124.738 kg 140.273 kg 139.4 kg Microbiology Reports for the Last 24 Hours: Microbiology 02/26/24 10:36 Blood Blood Culture - Preliminary NO GROWTH AFTER 24 HOURS 02/26/24 10:30 Blood Blood Culture - Preliminary NO GROWTH AFTER 24 HOURS 02/26/24 11:43 Sputum - Expectorated Sputum Gram Stain - Final 02/26/24 11:43 Sputum - Expectorated Sputum Sputum Culture - Preliminary Constitutional Constitutional: no acute distress and cooperative *Routine HEENT Exam Eye: Present PERRL *Routine Respiratory Exam Respiratory: Present CTA bilaterally; Absent accessory muscle use, wheezes or crackles *Routine Cardiovascular Exam Cardiovascular: Present RRR, Normal S1 and Normal S2; Absent murmur, gallop or rubs Comments: Pitting edema from feet to flanks bilaterally, slightly improved since presentation *Routine Abdominal Exam Abdominal: Present soft; Absent tenderness *Routine Extremities Exam Extremities: Present pulses intact; Absent cyanosis or edema Comments: Chronic bilateral lower extremity skin changes and breakdown from chronic swelling *Routine Skin Exam Skin: Present intact; Absent erythema or wounds *Routine Neurological Exam Neurological: Present alert and oriented X3 Routine Psychiatric Exam Psychiatric: Present cooperative Results Data Completed and Pending Labs on day of discharge: Labs from last 24 hours 02/27/24 06:13 WBC 5.6 RBC 3.95 L Hgb 10.9 L Hct 34.2 L MCV 86.6 MCH 27.6 MCHC 31.9 RDW 13.2 Plt Count 162 MPV 10.6 H Neut % (Auto) 62.2 Lymph % (Auto) 20.9 Towns % (Auto) 13.8 H Eos % (Auto) 2.0 Baso % (Auto) 0.9 Neut # (Auto) 3.5 Lymph # (Auto) 1.2 Towns # (Auto) 0.8 Eos # (Auto) 0.1 Baso # (Auto) 0.1 Sodium 134 L Potassium 3.7 Chloride 102 Carbon Dioxide 32 H Anion Gap 3.7 L BUN 17 Creatinine 1.00 D Estimated Creat Clear 161 Estimated GFR 77 Est GFR ( Amer) 93 D Glucose 128 H Calcium 8.2 L Magnesium 1.7 Total Bilirubin 1.3 AST 31 ALT 13 Alkaline Phosphatase 55 Total Protein 5.7 L Albumin 3.0 L D Globulin 2.7 Albumin/Globulin Ratio 1.1 Preliminary micro results at discharge 02/26/24 10:36 Blood Culture - Preliminary Blood NO GROWTH AFTER 24 HOURS 02/26/24 10:30 Blood Culture - Preliminary Blood NO GROWTH AFTER 24 HOURS 02/26/24 11:43 Sputum Culture - Preliminary Sputum - Expectorated Sputum DS: Diagnosis Discharge Diagnosis (1) Acute CHF (congestive heart failure): Status: Acute Code(s): I50.9 - Heart failure, unspecified (2) Hyperglycemia: Status: Acute Code(s): R73.9 - Hyperglycemia, unspecified (3) Pleural effusion: Status: Acute Code(s): J90 - Pleural effusion, not elsewhere classified (4) Hypertension: Status: Acute Code(s): I10 - Essential (primary) hypertension (5) Obesity (BMI 30-39.9): Status: Chronic Code(s): E66.9 - Obesity, unspecified (6) Cor pulmonale: Status: Acute Code(s): I27.81 - Cor pulmonale (chronic) Meds Home Medications and Allergies Home Medications ?Medication ?Instructions ?Recorded ?Confirmed ?Type aspirin 81 mg tablet,delayed 81 mg PO DAILY 30 days #30 tabs 02/27/24 Rx release atorvastatin 40 mg tablet 80 mg (2 x 40 mg) PO HS 30 days 02/27/24 Rx #60 tabs azithromycin 250 mg tablet 250 mg PO DAILY 3 days #3 tabs 02/27/24 Rx bumetanide 1 mg tablet 1 mg PO BID 30 days #90 tabs 02/27/24 Rx carvedilol 3.125 mg tablet 3.125 mg PO BID 30 days #60 tabs 02/27/24 Rx cefdinir 300 mg capsule 300 mg PO BID 3 days #6 caps 02/27/24 Rx clopidogrel 75 mg tablet 75 mg PO DAILY 30 days #30 tabs 02/27/24 Rx dapagliflozin propanediol 10 mg 10 mg PO DAILY 30 days #30 tabs 02/27/24 Rx tablet (Farxiga) isosorbide dinitrate 10 mg tablet 10 mg PO TID 30 days #90 tabs 02/27/24 Rx sacubitril 24 mg-valsartan 26 mg 1 tab PO BID 30 days #60 tabs 02/27/24 Rx tablet (Entresto) spironolactone 25 mg tablet 25 mg PO DAILY 30 days #30 tabs 02/27/24 Rx New Prescriptions to Start Prescriptions: aspirin Gregory,Odell atorvastatin Gregory,Odell azithromycin Gregory,Odell bumetanide Gregory,Odell carvedilol Gregory,Odell cefdinir Gregory,Odell clopidogrel Gregory,Odell dapagliflozin propanediol [Farxiga] Gregory,Odell isosorbide dinitrate Gregory,Odell sacubitril-valsartan [Entresto] Gregory,Odell spironolactone Gregory,Odell Allergies Allergy/AdvReac Type Severity Reaction Status Date / Time No Known Allergies Allergy Verified 02/25/24 15:54 Discharge Plan Disposition Patient Disposition: Home, Self-Care Discharge Order Discharge Orders: Discharge Order (Routine); Ordered 02/27/24 Ordered By: Odell Jenkins Follow up Plan Follow up with: Jose Ceron MD [Staff Physician] - 03/16/24 2:30 pm Lela Mcdaniel APRN [Nurse Practitioner] - 03/15/24 1:00 pm Prescriptions/Medication Reconciliation: New isosorbide dinitrate 10 mg Tablet 10 mg PO TID 30 Days Qty: 90 0RF atorvastatin 40 mg Tablet 80 mg PO HS 30 Days Qty: 60 0RF azithromycin 250 mg Tablet 250 mg PO DAILY 3 Days Qty: 3 0RF clopidogrel 75 mg Tablet 75 mg PO DAILY 30 Days Qty: 30 0RF aspirin 81 mg Tablet,Delayed Release (Dr/Ec) 81 mg PO DAILY 30 Days Qty: 30 0RF spironolactone 25 mg Tablet 25 mg PO DAILY 30 Days Qty: 30 0RF carvedilol 3.125 mg Tablet 3.125 mg PO BID 30 Days Qty: 60 0RF dapagliflozin propanediol [Farxiga] 10 mg Tablet 10 mg PO DAILY 30 Days Qty: 30 0RF sacubitril-valsartan [Entresto] 24-26 mg Tablet 1 tab PO BID 30 Days Qty: 60 0RF bumetanide 1 mg tablet 1 mg PO BID 30 Days Qty: 90 0RF Rx Instructions: Take 2 mg twice a day for 7 days, then take 1 mg twice a day. cefdinir 300 mg capsule 300 mg PO BID 3 Days Qty: 6 0RF Problem Reconciliation Problems Reviewed?: Yes Patient Discharge Instructions Patient Instructions: Congestive Heart Failure (Alternative Therapy), Heart Failure, Lifestyle Habits May Lower Lifetime Risk of Heart Failure in Men Print Language: Greek Providers Primary Care Provider: Provider,Referral Admit Provider: Kartik Shields Attending Provider: Kartik Shields
--- NOTE | 2024-03-01 11:11 | SW/DCPLANNER ---
Spoke with patient on the phone. Patient stated that he is doing well. Patient stated that he was able to get all medicine filled except for 1 and is waiting on insurance to approve. Patient stated that he is aware of his upcoming appointments and that he has no concerns or questions at this time. Ramona MERRITT Test Lead
== END 2024-02-27 05:27 | disposition home or self-care (01) | DRG 280 ==
LOC: ER 16:46 → 2ND 18:07
PROVIDERS: Student in an Organized Health Care Education/Training Program; Admitting Provider Internal Medicine Adolescent Medicine; Emergency Provider Student in an Organized Health Care Education/Training Program; Visit Provider Internal Medicine Adolescent Medicine
DX: I11.0 Hypertensive heart disease with heart failure (principal); I26.09 Other pulmonary embolism with acute cor pulmonale; I21.4 Non-ST elevation (NSTEMI) myocardial infarction; J18.9 Pneumonia, unspecified organism; I50.31 Acute diastolic (congestive) heart failure; E66.9 Obesity, unspecified; E11.65 Type 2 diabetes mellitus with hyperglycemia; I16.0 Hypertensive urgency; I27.81 Cor pulmonale (chronic); F17.200 Nicotine dependence, unspecified, uncomplicated; Z68.39 Body mass index [BMI] 39.0-39.9, adult
CPT/HCPCS: 36415; 71046; 71250; 74177; 80053; 80074; 80320; 82962; 83036; 83690; 83722; 83735; 83880; 84443; 84484; 85025; 85610; 87040; 87070; 87205; 93005; 93306; 99285; J0360; J0696; J1650; J1939; J1940; J3475; Q9967

== ENCOUNTER 2024-03-01 15:36 | Emergency (ER) | payer OTHER, SELFPAY ==
[2024-03-01 15:47] VITALS: BP 0/0; PULSE 0; RESP 0; TEMP -17.7; TEMP 0
== END 2024-03-01 15:46 | disposition left against medical advice (07) ==
LOC: UTC 15:39
PROVIDERS: Emergency Provider Nurse Practitioner Family; PCP Internal Medicine
DX: Z53.21 Procedure and treatment not carried out due to patient leaving prior to being seen by health care provider (principal)

== ENCOUNTER 2024-03-16 15:57 | Outpatient (CLI) | payer OTHER, SELFPAY ==
[2024-03-16 16:33] LABS: Albumin Level 4.3 g/dl (3.5-5.0); Chloride 99 mmol/L (98-107); Sodium 139 mmol/L (136-145)
[2024-03-16 16:36] LABS: Alanine Aminotransferase 19 U/L (12-78); Aspartate Amino Transferase 34 U/L (17-59); Bilirubin,Unconjugated 0.7 mg/dL (0.0-1.1); Blood Urea Nitrogen 34 mg/dl (9-20); Carbon Dioxide 31 mmol/L (22.0-30.0); Estimated Glomerular Filt Rate 69 ml/min (>60); GFR (African American) 83 ML/MIN (>60); Total Protein,Serum 7.6 g/dl (6.3-8.2)
[2024-03-16 16:37] LABS: Alkaline Phosphatase 72 U/L (38-126); Bilirubin,Direct 0.6 mg/dl (0.0-0.4); Bilirubin,Indirect 0.7 mg/dL (0.0-0.9); Bilirubin,Total 1.3 mg/dl (0.2-1.3); Calcium 9.8 mg/dl (8.4-10.2); Cholesterol 190 mg/dl (140-200); Glucose 152 mg/dl (74-100); HDL Cholesterol 64 mg/dl (40-60); Magnesium 1.9 mg/dl (1.6-2.3); Triglycerides 97 mg/dl (30-150); VLDL Cholesterol 19 mg/dL (0-40)
[2024-03-16 16:48] LABS: Direct LDL Cholesterol 93.55 mg/dL (100-129)
[2024-03-16 16:54] LABS: Free T4 (Free Thyroxine) 1.05 ng/dl (0.78-2.19)
[2024-03-16 17:03] LABS: Basophils # 0.1 K/mm3 (0-0.2); Basophils % 0.8 % (0.1-2.0); Eosinophils # 0.2 K/mm3 (0.0-0.4); Eosinophils % 3.9 % (0.1-12.0); Hematocrit 37.9 % (42.0-52.0); Hemoglobin 12.5 g/dL (14.1-18.0); Lymphocytes # 1.5 K/mm3 (0.7-4.5); Lymphocytes % 24.5 % (10-50); Mean Corpuscular Hemoglobin 28.2 pg (27.0-31.2); Mean Corpuscular Volume 85.4 fl (80-94); Mean Platelet Volume 10.3 fl (7.4-10.4); Monocytes # 0.8 K/mm3 (0.1-1.0); Monocytes % 12.8 % (1.7-9.3); Neutrophils # 3.6 K/mm3 (1.8-7.8); Neutrophils % 57.8 % (37.0-80.0); Platelet Count 199 K/mm3 (142-424); Red Blood Count 4.44 M/mm3 (4.60-6.20); White Blood Count 6.2 K/mm3 (4.8-10.8)
[2024-03-16 17:07] LABS: Thyroid Stimulating Hormone 9.92 uIU/mL (0.465-4.68)
== END 2024-03-16 23:59 | disposition home or self-care (01) ==
PROVIDERS: PCP Internal Medicine; Visit Provider Internal Medicine
DX: I25.10 Atherosclerotic heart disease of native coronary artery without angina pectoris (principal); E78.5 Hyperlipidemia, unspecified; R60.0 Localized edema; R06.00 Dyspnea, unspecified; I50.30 Unspecified diastolic (congestive) heart failure; I10 Essential (primary) hypertension; J90 Pleural effusion, not elsewhere classified
CPT/HCPCS: 36415; 80048; 80061; 80076; 83735; 84439; 84443; 85025

== ENCOUNTER 2024-03-23 12:17 | Outpatient (CLI) | payer OTHER, SELFPAY ==
--- NOTE | 2024-03-23 | CA_ITS ---
APPROVED REPORT Exam: Pharmacologic Technologist: Julia Khanna Ht: 6 ft 1 in Wt: 259 lbs BSA: 2.40 m2 HR: 73 bpm BP: 128/73 mmHg Stress Test Details Test: Lexiscan HR Resting HR: 73 bpm Max Heart Rate (APMHR): 163 bpm Max HR Achieved: 78 bpm Target HR (85% APMHR): 139 bpm % of APMHR: 48 Recovery HR: 76 bpm BP Resting BP: 128.0/73.0 mmHg Max BP: 128.0/73.0 mmHg Recovery BP: 123.0/68.0 mmHg ECG Resting ECG: Sinus rhythm with PVC Recovery ST Change: PVCs Stress ECG Conclusion Symptoms: Arrhythmias/Ectopy: Multifocal PVC ST-T Changes: No significant ST changes Conclusion: EKG portion unremarkable due to Lexiscan infusion. Electronically signed by : Aida Thorpe MD 03/24/2024 12:36:26
--- NOTE | 2024-03-23 12:17 | NM_ITS ---
APPROVED REPORT Exam: Nuclear Stress Test Indication: hypertension Patient Location: Outpatient Stress Tech: Julia Khanna NM Tech:ANDREEA Rick, RT (R)(N) Ht: 6 ft 1 in Wt: 245 lbs HR: 73 bpm BP: 128/73 mmHg BSA: 2.35 m2 TID: 1.31 BMI: 32.3 History: hypertension Procedure: Patient received 0.4 mg of intravenous Lexiscan, resting heart rate 73 bpm, resting blood pressure 128/73 mmHg, with Lexiscan maximum heart rate achieved was 78 bpm which is 85 % of the maximum predicted heart rate and blood pressure was 127/64 mmHg. With Lexiscan, patient denied any complaint of chest pain. Cardiac Stress and Resting SPECT Images: Cardiac Stress and Resting SPECT images were obtained using technetium 99m Myoview 32.7 mCi stress and 10.91 mCi at rest. Resting and stress imaging in supine and prone positions demonstrate a large sized, moderate, predominantly fixed perfusion defect in the basal to mid inferior LV wall. There is a region of reversibility towards the inferoapical region. There is increase in transient ischemic dilatation ratio (TID 1.31), suggestive of possible multivessel disease or balanced ischemia. Gated imaging demonstrates moderate reduction global LV systolic function. There is severe hypokinesis of the basal to mid inferior LV wall. LVEF is calculated at 35%. Conclusion: Large sized, moderate, predominantly fixed perfusion defect in the basal to mid inferior LV wall. There is a region of reversibility towards the inferoapical region. Findings are suggestive of partial reversible ischemia. There is increase in transient ischemic dilatation ratio (TID 1.31), suggestive of possible multivessel disease or balanced ischemia. Gated imaging demonstrates moderate reduction global LV systolic function. There is severe hypokinesis of the basal to mid inferior LV wall. LVEF is calculated at 35%. Electronically signed by : Aida Thorpe MD 03/24/2024 12:24:38
[2024-03-23] MEDS: SODIUM CHLORIDE 0.9% 10ML SYR (RAD ONLY) 10 ML IV ×2 (13:50→13:51)
[2024-03-23] MEDS: REGADENOSON 0.4MG/5ML SYRINGE 0.4 MG IV (13:50)
[2024-03-23] MEDS: ISOTOPE MYOVIEW (PER STUDY) 1 DOSE IV (13:51)
[2024-03-23 18:09] LABS: Anion Gap 14.2 mEq/L (5-15); Blood Urea Nitrogen 48 mg/dl (9-20); Calcium 9.4 mg/dl (8.4-10.2); Carbon Dioxide 29 mmol/L (22.0-30.0); Chloride 95 mmol/L (98-107); Estimated Glomerular Filt Rate 69 ml/min (>60); GFR (African American) 83 ML/MIN (>60); Glucose 169 mg/dl (74-100); Potassium 5.2 mmoL/L (3.5-5.1); Sodium 133 mmol/L (136-145)
[2024-03-23 18:39] LABS: Thyroid Stimulating Hormone 3.53 uIU/mL (0.465-4.68)
== END 2024-03-23 23:59 | disposition home or self-care (01) ==
LOC: RAD 12:17
PROVIDERS: PCP Internal Medicine; Visit Provider Internal Medicine
DX: I25.10 Atherosclerotic heart disease of native coronary artery without angina pectoris (principal); R60.0 Localized edema; R06.00 Dyspnea, unspecified; Z79.899 Other long term (current) drug therapy
CPT/HCPCS: 78452; 80048; 84443; 93017; 93018; A9502; J2785

== ENCOUNTER 2024-04-06 09:23 | Day surgery (SDC) | payer OTHER, SELFPAY ==
[2024-04-06] VITALS (11 sets, daily range): BP systolic 109–171; BP diastolic 57–88; PULSE 72–88; RESP 16–20; O2SAT 95–100; BMI 33.2
--- NOTE | 2024-04-06 07:43 | IR_ITS ---
APPROVED REPORT Patient Location: Outpatient PROCEDURES Left heart catheterization Left ventriculogram Selective coronary gram INDICATION Abnormal Myoview, Systolic congestive heart failure Informed consent was obtained prior to the procedure. COMPLICATIONS none Estimated Blood Loss: less than 10ml TECHNIQUE One percent lidocaine used to anesthetize the right anterior aspect of the wrist. The right radial artery was accessed via the Seldinger technique. A 6 Macanese sheath was placed in the right radial artery. 2.5 mg of Verapamil, 800 mcg of nitroglycerin, 1mg Lidocaine and 5000 U Heparin were given through the arterial sheath. The Macanese JL 3 guide catheter was also used to perform left heart catheterization, left ventriculogram and selective coronary angiogram. At the end of the procedure the sheath was removed good hemostasis was achieved using Traclet band, patient was transferred to the postop holding area in stable condition. ANGIOGRAPHIC RESULTS The left main artery Normal The left anterior descending artery Has ostial 10% stenosis with mid vessel 70 and 80% stenosis with an additional mid vessel 70% stenosis. A large bifurcating first diagonal artery has an ostial calcified 90% stenosis The circumflex artery Is nondominant and gives rise to a medium to large first obtuse marginal artery which has a proximal concentric 70% stenosis The right coronary artery Large and dominant with proximal 30% stenoses mid vessel tandem 80% calcified stenoses with distal 20 and 30% stenoses The FOWLER ventriculogram reveals Reduced at 40% The left ventricular end-diastolic pressure 35 mmHg IMPRESSION Severe three-vessel coronary disease as described above Reduced ejection fraction Elevated LVEDP PLAN 1. Patient will be referred for coronary artery bypass surgery at [facility] 2. Treatment of diabetes. Patient's blood sugar is 181 on fasting blood sugar meeting criteria for diabetes 3. LDL less than 55 to be achieved with high intensity statin 4. Diuretics to decrease LVEDP prior to surgery Electronically signed by : Jose Ceron MD 04/06/2024 12:33:44
[2024-04-06 09:54] LABS: Basophils # 0.1 K/mm3 (0-0.2); Basophils % 0.9 % (0.1-2.0); Eosinophils # 0.2 K/mm3 (0.0-0.4); Hematocrit 37.3 % (42.0-52.0); Hemoglobin 12.3 g/dL (14.1-18.0); Lymphocytes # 2.2 K/mm3 (0.7-4.5); Lymphocytes % 34.5 % (10-50); Mean Platelet Volume 9.8 fl (7.4-10.4); Monocytes # 0.8 K/mm3 (0.1-1.0); Monocytes % 12.1 % (1.7-9.3); Neutrophils # 3.1 K/mm3 (1.8-7.8); Neutrophils % 49.3 % (37.0-80.0); Platelet Count 185 K/mm3 (142-424); Red Blood Count 4.39 M/mm3 (4.60-6.20); Red Cell Distribution Width 13.1 % (11.5-17.5); White Blood Count 6.3 K/mm3 (4.8-10.8)
[2024-04-06 10:00] LABS: Chloride 100 mmol/L (98-107); Potassium 4.6 mmoL/L (3.5-5.1); Sodium 137 mmol/L (136-145)
[2024-04-06 10:03] LABS: Blood Urea Nitrogen 48 mg/dl (9-20); Creatinine Clearance Estimated 101 mL/min (50-200); Estimated Glomerular Filt Rate 57 ml/min (>60); GFR (African American) 69 ML/MIN (>60)
[2024-04-06 10:04] LABS: Anion Gap 16.6 mEq/L (5-15); Calcium 9.1 mg/dl (8.4-10.2); Carbon Dioxide 25 mmol/L (22.0-30.0); Glucose 181 mg/dl (74-100)
[2024-04-06] MEDS: VERAPAMIL 2.5MG/ML 2ML VIAL 2.5 MG IV (11:17)
[2024-04-06] MEDS: 0.9 % SODIUM CHLORIDE 500 ML 25 ML IV (11:17)
[2024-04-06] MEDS: HEPARIN 1,000 UNITS/ML 10ML VIAL (CATH LAB) 10000 UNIT IV (11:17)
[2024-04-06] MEDS: HEPARIN 1,000 UNITS/500ML NS (CATH LAB) 3000 UNIT IV (11:17)
[2024-04-06] MEDS: LIDOCAINE 1% 10ML MDV 20 ML IJ (11:17)
[2024-04-06] MEDS: NITROGLYCERIN 800MCG/8ML SYR (CATH LAB) 800 MCG IA (11:18)
[2024-04-06] MEDS: diphenhydrAMINE 50MG/ML VIAL 50 MG IV (11:18)
[2024-04-06] MEDS: FENTANYL 100MCG/2ML VIAL 50 MCG IV (12:27)
[2024-04-06] MEDS: MIDAZOLAM HCL 1MG/ML 5ML VIAL 1 MG IV (12:27)
[2024-04-06] MEDS: IOPAMIDOL-370 (76%);100ML BOTTLE 50 ML IV (15:54)
== END 2024-04-06 15:00 | disposition home or self-care (01) ==
LOC: CATHLAB 09:24
PROVIDERS: PCP Internal Medicine; Visit Provider Internal Medicine
DX: I25.10 Atherosclerotic heart disease of native coronary artery without angina pectoris (principal); I50.30 Unspecified diastolic (congestive) heart failure; R93.1 Abnormal findings on diagnostic imaging of heart and coronary circulation; E78.5 Hyperlipidemia, unspecified; I25.2 Old myocardial infarction; Z87.891 Personal history of nicotine dependence; Z79.899 Other long term (current) drug therapy; I11.0 Hypertensive heart disease with heart failure
CPT/HCPCS: 80048; 85025; 93458; 99152; C1725; C1769; J1200; J1644; J2250; J3010; Q9967

== ENCOUNTER 2024-10-22 13:08 | Outpatient (CLI) | payer OTHER, SELFPAY ==
--- OUTSIDE RECORDS SUMMARY | 2024-10-11 15:01 | XMS_ITS | Encounter Summary ---
Author Organization [facility] Address [address] [place] [address] Care Team Providers Care Arc Cutter Plasma Arc Name Role Phone Jose Iyer DO Primary Care Provider + Encounter Details Date Type Department Care Team (Latest Contact Info) Description 10/11/2024 3:01 PM EDT - 10/11/2024 11:59 PM EDT Hospital Encounter [facility] [address] [facility] [address] [place] [address] Encounter for examination for normal comparison or control in clinical research program Discharge Disposition: Home or Self Care Social History Tobacco Use Types Packs/Day Years Used Date Smoking Tobacco: Never Assessed Sex and Gender Information Value Date Recorded Sex Assigned at Not on file Legal Sex Male 12:54 PM EDT Gender Identity Not on file Sexual Orientation Not on file documented as of this encounter Plan of Treatment Upcoming Encounters Date Type Department Care Team (Late st Contact Info) Description 11/11/2024 2:30 PM EDT Office Visit [facility] CARDIOTH[facility]ACIC SURGERY [address] [facility] [address] [place] [address] Lillian Sidhu APRN [address] [facility] [address] [place] [address] documented as of this encounter Procedures Procedure Name Priority Date/Time Associated Diagnosis Comments OUTSIDE INVASIVE CARDIOLOGY STUDY Routine 10/11/2024 3:01 PM EDT Encounter for examination for normal comparison or control in clinical research program documented in this encounter Results * OUTSIDE INVASIVE CARDIOLOGY STUDY (10/11/2024 3:01 PM EDT) Narrative SYSTEMGENERATED, DOCUMENTATION - 10/11/2024 3:01 PM EDT This procedure was auto-finalized with no dictation required. Yg Yu MD CV CARDIAC SERVICES ORDERAB LES Final Result documented in this encounter Visit Diagnoses Diagnosis Encounter for examination for normal comparison or control in clinical research program documented in this encounter Care Teams Arc Cutter Plasma Arc Relationship Specialty Start Date End Date Jose Iyer DO [address] [place] [address] [place] [id number] PCP - General Internal Medicine 09/24/24 documented as of this encounter
--- NOTE | 2024-10-22 13:00 | CA_ITS ---
APPROVED REPORT EXAM: Comprehensive 2D, Doppler, and color-flow Echocardiogram Service Technician Copier: RADHA Loya, RVS Ht: 6 ft 1 in Wt: 263lbs BSA: 2.42 BP: 145/63 mmHg Indications: HFpEF,EDEMA 2D Dimensions IVSd 1.34 cm M: 0.6-1.2 LVEF (Visual) 46.60 % PWd 1.47 cm M: 0.6 - 1.2 LA Volume 86.40 mL LVDd 5.08 cm M: 4.2 - 5.9 LA Volume Index 35.70 mL/m2 (M/F) 16-34 LVDs 3.89 cm M: 2.5 - 4.0 Left Atrium 4.29 cm M: 3.0 - 4.0 M-Mode Dimensions LA Diam 4.04 cm (1.9-4.0) LVDd 5.68 cm (3.5-5.7) LVDs 4.54 cm (3.5-5.7) EF (Teich) 40.60% EPSs 1.03 cm FS 20.10% EDV (Teich) 158.80 mL TAPSE 2.22 (<1.7) ESV (Teich) 94.40 mL LV Diastology E Decel Time 107 (160-240 msec) E/A Ratio 0.52 MED A' 11.40 cm/s LAT A' 16.60 cm/s Aortic Valve MADHURI Index 0.69 cm2/m2 AoV Peak Froylan. 162.0 (50-130 cm/s) AO Peak GR. 10.50 mmHg AO Mean GR. 5.20 (<5 mmHg) AO VTI 30.8 (18-25 cm) MADHURI (VTI) 1.71 (2.5-4.5 cm2) Mitral Valve MV A Velocity 96.0 (40-130 cm/s) E/A Ratio 0.52 Left Ventricle The left ventricle is normal size. Left ventricular systolic function is normal. The left ventricular ejection fraction is within the normal range. There is increased left ventricular wall thickness. There is normal LV segmental wall motion. Transmitral Doppler flow pattern suggests impaired LV relaxation. LVEF is 55% Right Ventricle The right ventricle is normal size. The right ventricular systolic function is normal. Atria The left atrium is mildly dilated. The right atrium size is normal. There is no color Doppler evidence of interatrial shunt. Aortic Valve The aortic valve is mildly thickened. There is no hemodynamically significant aortic valvular stenosis. Trace aortic regurgitation is present. Mitral Valve The mitral valve is normal in structure. No evidence of mitral valve stenosis. Mild mitral regurgitation is present. Tricuspid Valve The tricuspid valve leaflets are thin and pliable. Trace tricuspid regurgitation. There is insufficient TR jet to estimate RVSP. Pulmonic Valve The pulmonary valve is grossly normal in structure. Trace pulmonic valve regurgitation is present. Great Vessels The aortic root is normal in size. IVC is normal in size and collapses >50% with inspiration. Pericardium There is no pericardial effusion. Other Information Study Quality: Fair Conclusion Normal biventricular systolic function. Mild LA dilation. Mild MR. Electronically signed by : Aida Thorpe MD 10/23/2024 14:13:53
--- OUTSIDE RECORDS SUMMARY | 2024-10-22 13:09 | XMS_ITS | Clinical Summary ---
Author Organization [facility] Address [address] [place] [address] Care Team Providers Care Retail Loss Prevention Officer Name Role Phone Jose Iyer DO Primary Care Provider + Encounters Date Type Department Care Team Description 10/11/2024 3:01 PM EDT - 10/11/2024 11:59 PM EDT Hospital Encounter [facility] CARDIOVASCULAR LAB [address] [facility] [address]rd [place] [address] Encounter for examination for normal comparison or control in clinical research program Discharge Disposition: Home or Self Care from Last 3 Months Social History Tobacco Use Types Packs/Day Years Used Date Smoking Tobacco: Never Assessed Sex and Gender Information Value Date Recorded Sex Assigned at Not on file Legal Sex Male 12:54 PM EDT Gender Identity Not on file Sexual Orientation Not on file Plan of Treatment Upcoming Encounters Date Type Department Care Team (Late st Contact Info) Description 11/11/2024 2:30 PM EDT Office Visit [facility] CARDIOTHORACIC SURGERY [address] [phone] Lillian Sidhu, TRAINING OFFICER [address] [facility] [address] [place] [address] Health Maintenance Due Date Last Done Comments ANNUAL PHYSICAL 1967 HEPATITIS C SCREENING 1967 DIABETIC EYE EXAM 1977 DIABETIC FOOT EXAM 1977 URINE MICROALBUMIN-CREATININE RATIO (uACR) 1977 Hepatitis B (1 of 3 - 19+ 3-dose series) 1986 Pneumococcal Vaccine 50+ (1 of 2 - PCV) 1986 TDAP/TD VACCINES (1 - Tdap) 1986 COLOGUARD 01/02/2012 COLON CANCER SCREENING 5 YEA R SIGMOIDOSCOPY 01/02/2012 COLONOSCOPY 01/02/2012 COLORECTAL CANCER SCREENING 01/02/2012 CT COLONOGRAPHY 01/02/2012 FECAL OCCULT BLOOD TEST 01/02/2012 FIT Testing (1 year) 01/02/2012 ZOSTER VACCINE (1 of 2) 2017 COVID-19 Vaccine (1 - season) 2023 HEMOGLOBIN A1C 10/27/2024 04/29/2024, 04/29/2024 INFLUENZA VACCINE 12/08/2024 Procedures Procedure Name Priority Date/Time Associated Diagnosis Comments OUTSIDE INVASIVE CARDIOLOGY STUDY Routine 10/11/2024 3:01 PM EDT Encounter for examination for normal comparison or control in clinical research program from Last 3 Months Results * OUTSIDE INVASIVE CARDIOLOGY STUDY (10/11/2024 3:01 PM EDT) Narrative SYSTEMGENERATED, DOCUMENTATION - 10/11/2024 3:01 PM EDT This procedure was auto-finalized with no dictation required. us Yg Yu MD CV CARDIAC SERVICES ORDERAB LES Final Result from Last 3 Months Insurance [facility] Care Teams Retail Loss Prevention Officer Relationship Specialty Start Date End Date Jose Iyer DO [address] [place] [address] [address] [place] [address] PCP - General Internal Medicine 09/24/24
--- OUTSIDE RECORDS SUMMARY | 2024-10-22 13:09 | XMS_ITS | Clinical Summary ---
Author Organization Healthcare Address [address] [place] [address] Care Team Providers Care Applications Systems Engineer Name Role Phone Jose Iyer DO Primary Care Provider Jose Ceron MD Unavailable [phone] Allergies No known active allergies Medications aspirin 81 MG EC tablet Take 1 tablet (81 mg) by mouth daily. Active atorvastatin (Lipitor) 80 MG tablet Take 1 tablet (80 mg) by mouth nightly. Active bumetanide (Bumex) 1 MG tablet Take 2 tablets (2 mg) by mouth 2 (two) times a day. Active carvedilol (Coreg) 3.125 MG tablet Take 1 tablet (3.125 mg) by mouth 2 (two) times a day with meals. Active clopidogrel (Plavix) 75 MG tablet Take 1 tablet (75 mg) by mouth daily. Active dapagliflozin (Farxiga) 10 MG tablet Take 1 tablet (10 mg) by mouth daily. Active sacubitril-vals grace (Entresto) 49-51 MG tablet Take 1 tablet by mouth 2 (two) times a day. Active spironolactone (Aldactone) 25 MG tablet Take 1 tablet (25 mg) by mouth daily. Active Family History Medical History Relation Name Comments Cancer Father Hypertension Mother Relation Name Status Comments Father Mother Social History Tobacco Use Types Packs/Day Years Used Date Smoking Tobacco: Former Cigarettes Smokeless Tobacco: Never Tobacco Cessation:Counseling Given: Not Answered Comments:Quit smoking 2023, smoked .75 ppd for 42 yrs Alcohol Use Standard Drinks/Week Comments Not Currently 0 (1 standard drink = 0.6 oz pur e alcohol) Sex and Gender Information Value Date Recorded Sex Assigned at Not on file Legal Sex Male 3:05 PM EST Gender Identity Not on file Sexual Orientation Not on file Last Filed Vital Signs Vital Sign Reading Time Taken Comments Blood Pressure 132/88 04/29/2024 12:03 PM EST Pulse - - Temperature - - Respiratory Rate - - Oxygen Saturation - - Inhaled Oxygen Concentration - - Weight 115 kg (253 lb 12 oz) 04/29/2024 11:51 AM EST Height 185.4 cm (6' 1 ) 04/29/2024 11:51 AM EST Body Mass Index 33.48 04/29/2024 11:51 AM EST Plan of Treatment Health Maintenance Due Date Last Done Comments [facility]-Depression Screening 1967 [facility]-HIV Screening 1967 [facility]-Hepatitis C Screening 1967 [facility]-Infant/Child/Adol SDOH Screenings 1967 Diabetes: Dental Exam 1977 [facility]- SDOH Screenings 1985 [facility]-Adult SDOH Screenings 1985 [facility]-DTaP,Tdap,and Td Vaccine s (1 - Tdap) 1986 [facility]-Hepatitis B Vaccines (1 of 3 - 19+ 3-dose series) 1986 [facility]-Pneumococcal Vaccine: 50 + Years (1 of 2 - PCV) 1986 CT Colonography 01/02/2012 Colonoscopy 01/02/2012 FIT-DNA 01/02/2012 FIT 01/02/2012 FOBT 01/02/2012 Sigmoidoscopy 01/02/2012 [facility]-Colorectal Cancer Screening 01/02/2012 [facility]-Zoster Vaccines (1 of 2) 2017 [id number] Vaccine (1 - 20 24-25 season) 2023 [facility]-Diabetes: Hemoglobin A1C 07/29/2024 04/29/2024 [facility]-Influenza Vaccine (#1) 2024 [facility]-Obesity Intervention Completed 04/29/2024 HPV Vaccines Aged Out No longer eligi ble based on patient's age to complete this topic [facility]-HIB Vaccines Aged Out No longer e ligible based on patient's age to complete this topic [facility]-Hepatitis A Vaccines Aged Out No longer eligible based on patient's age to complete this topic [facility]-IPV Vaccines Aged Out No longer e ligible based on patient's age to complete this topic [facility]-Rotavirus Vaccines Aged Out No lo nger eligible based on patient's age to complete this topic Procedures Procedure Name Priority Date/Time Associated Diagnosis Comments HEMOGLOBIN A1C Routine 04/29/2024 12:55 PM EST Type 2 diabetes mellitus without complication, without long-term current use of insulin ([facility]) from Last 3 Months or Most Recently Relevant to Health Maintenance Results * (ABNORMAL) Hemoglobin A1c (04/29/2024 12:55 PM EST) Hemoglobin A1c 7.6(H) <5.7 % 04/29/2024 2:13 PM EST [facility] Blood Venous blood specimen / Unknown Venipuncture / Unknown 04/29/2024 12:55 PM EST 04/29/2024 12:56 PM EST Narrative [facility] - 04/29/2024 2:13 PM EST HA1C Interpretive Data: Diagnosis of Diabetes: Diabetic > or = 6.5% Pre-diabetic 5.7 to 6.4% Non-diabetic < or = 5.6% Glycemic Targets for Type I and Type II Diabetics: Non- Adults <7.0% Adults <6.0% Children and Adolescents <7.5% Source: [place] [employer]. Standards of medical care in diabetes,2017. Diabetes Care.2017:40 (suppl 1):S1-S135. HbA1c assay performed by an ion-exchange chromatography method that is certified traceable to the DCCT. us [facility] BLOOD ORDERABLES Final Result [facility] [address] [place] [address] from Last 3 Months or Most Recently Relevant to Health Maintenance Insurance MEDICAID Care Teams Applications Systems Engineer Relationship Specialty Start Date End Date Jose Iyer DO [address] [facility] [address] [phone] PCP - General 04/20/24 Jose Ceron MD [address] [facility] [address] [place] [address] Referring Physician 04/20/24
== END 2024-10-22 23:59 | disposition home or self-care (01) ==
LOC: RT 13:08
PROVIDERS: PCP Internal Medicine; Visit Provider Physician Assistant
DX: I34.0 Nonrheumatic mitral (valve) insufficiency (principal); I11.0 Hypertensive heart disease with heart failure; I50.30 Unspecified diastolic (congestive) heart failure; I21.4 Non-ST elevation (NSTEMI) myocardial infarction
CPT/HCPCS: 93306